=== PATIENT | male | born 1945 | race Caucasian/White ===

== ENCOUNTER → 2019-10-10 14:41 | Outpatient (CLI) | payer MEDICARE, SELFPAY ==
--- NOTE | 2019-10-10 | DI.MRI.S_ITS ---
PROCEDURE: MR KNEE RT WO CON INDICATIONS: PAIN IN RIGHT KNEE TECHNIQUE: Noncontrast sagittal PD fast spin echo and T2 fast spin echo with fat saturation, sagittal 3-D FLASH with fat saturation; coronal T1 spin echo and PD fast spin echo with fat saturation, and axial PD fast spin echo with fat saturation through the knee. COMPARISON: [facility] [place], CR, XR KNEE ARTHRITIC SERIES BI, 06/24/2019, 15:13. FINDINGS: Image quality: Excellent. Menisci: Ill-defined medial meniscal tear involving the body and posterior horn, with near-complete extrusion. There is abnormal signal extending to the undersurface, periphery of the body as well as marked truncation of the free margin of the posterior horn. Lateral meniscus intact. Cruciate ligaments: Anterior cruciate ligament appears intact. Posterior cruciate ligament appears intact. Medial structures: There is medial bowing of the medial collateral ligament, with mild internal signal changes and no complete rupture. There is adjacent soft tissue edema. The appearance could reflect reactive changes to medial compartment pathology, versus low-grade sprain of the MCL. Pes anserinus tendons appear grossly unremarkable. Semimembranosus tendon appears intact. Lateral structures: The lateral collateral ligament demonstrates thickening and intrasubstance signal change in keeping with low grade sprain, statistically chronic, although technically age indeterminate. Biceps femoris tendon appears intact. Popliteus tendon grossly unremarkable. Iliotibial band appears intact. Anterior structures: Distal quadriceps tendinopathy. Medial and lateral patellofemoral ligaments intact. There is mild patellar tendinopathy. Prepatellar and superficial infrapatellar subcutaneous edema/fluid. Bones and cartilage: No focal marrow contusion or discrete low signal fracture line. Within the medial compartment, areas of full-thickness articular cartilage loss overlying the central tibial plateau and femoral condyle. Underlying marked marrow edema and cystic change. Within the lateral compartment, intrasubstance signal change present within the central tibial cartilage. There is diffuse partial-thickness loss of the femoral cartilage without focal defect. Within the patellofemoral compartment, diffuse partial-thickness loss of the patellar and femoral trochlear articular cartilage with surface fraying. Mild marrow cystic change and edema at the medial patellar facet, and sclerosis. Joint space: Moderate joint effusion Tiny Barnett's cyst measuring 1-2 cm in the cephalocaudad dimension. A pair of sub-5 mm bright dark signal abnormalities seen in the patellofemoral joint space, potentially small sequela of prior surgery versus foreign bodies or loose bodies. This finding technically nonspecific and radiographically occult. Recommend clinical correlation to determine significance IMPRESSION: Macerated ill-defined medial meniscal tear involving posterior horn and body. Distal quadriceps and diffuse patellar tendinopathy with adjacent edema and fluid. Degenerative joint disease as above, most pronounced the medial compartment Moderate joint effusion Tiny Barnett's cyst Nonspecific subcentimeter signal changes present within the patellofemoral joint space. Please see comment above and recommend clinical correlation Dictated by: Griffin Garcia M.D. on 10/12/2019 at 8:07 Approved by: Griffin Garcia M.D. on 10/12/2019 at 8:19
== END ==
PROVIDERS: Family Provider Family Medicine; PCP Family Medicine; Referring Provider Orthopaedic Surgery; Visit Provider Orthopaedic Surgery
DX: M25.561 Pain in right knee (principal); S83.241A Other tear of medial meniscus, current injury, right knee, initial encounter; M25.461 Effusion, right knee
CPT/HCPCS: 73721

== ENCOUNTER → 2019-10-28 12:58 | Outpatient (CLI) | payer MEDICARE, SELFPAY ==
--- NOTE | 2019-10-28 | DI.MRI.S_ITS ---
PROCEDURE: MR KNEE LT WO CON INDICATIONS: Unilateral primary osteoarthritis, left knee TECHNIQUE: Noncontrast sagittal PD fast spin echo and T2 fast spin echo with fat saturation, sagittal 3-D FLASH with fat saturation; coronal T1 spin echo and PD fast spin echo with fat saturation, and axial PD fast spin echo with fat saturation through the knee. COMPARISON: [facility] [place], CR, XR KNEE ARTHRITIC SERIES BI, 06/24/2019, 15:13. FINDINGS: Image quality: Diagnostic. Bones and joint: There is no acute fracture or dislocation. No suspicious osseous lesions are evident. There is a small knee joint effusion with an associated complex Barnett's cyst. There is lobulated fluid evident along the posterior medial aspect of the proximal tibia along the pes anserinus region, which appears to be emanating from the Barnett's cyst. Heterogeneity of the hyaline articular cartilage is noted throughout the knee. There are chronic appearing moderate to large full thickness defects of the hyaline articular cartilage within the medial tibiofemoral compartment with areas of degenerative/reactive marrow edema involving the medial femoral condyle and the medial tibial plateau. There may also be small defects of the head articular cartilage within the patellofemoral compartment. Cruciate ligaments: The anterior cruciate ligament is thickened and demonstrates diffuse increased signal. No full-thickness tear is evident. The posterior cruciate ligament is intact and otherwise unremarkable. Menisci: There is a very small radial tear identified along the free edge of the body of the lateral meniscus. Degenerative/grade 2 signal is evident throughout the lateral meniscus. There also is degenerative signal evident involving the medial meniscus. There is moderate grade partial-thickness tear involving the posterior root of the medial meniscus. Fraying along the free edge of the body of the medial meniscus is evident. Medial structures: There is increased signal and heterogeneity involving the medial collateral ligament, probably related to previous partial thickness tear. No complete tear is identified. The semimembranosus tendon insertion is mildly edematous and thickened. The imaged portions of the pes anserinus tendons are unremarkable. No significant fluid is contained within the pes anserinus bursa. There is a small medial patellar plica. Lateral structures: The popliteal tendon is thickened and edematous. The lateral collateral ligament proper (fibular collateral ligament) and the proximal tibiofibular ligaments are intact. The distal aspect of the biceps femoris tendon and the iliotibial band are intact. Anterior structures: The quadriceps and patellar tendons are intact. Enthesophytes at the distal quadriceps insertion and the distal patellar insertion is evident. There is mild increased signal involving these tendons at these locations. There is no significant edema in the infrapatellar fat pad. IMPRESSION: 1. Moderate degenerative changes of the knee are most pronounced within the medial compartment. 2. Degenerative changes of both menisci without a large tear evident, as described. 3. Mild distal quadriceps and patellar tendinopathy. 4. Probable old injury of the medial collateral ligament. 5. Distal semimembranosus tendinopathy. 6. Mild proximal popliteal tendinopathy. 7. Medial patellar plica. 8. Small knee joint effusion with a complex Barnett's cyst. Dictated by: Harrison Jean M.D. on 10/28/2019 at 15:35 Approved by: Harrison Jean M.D. on 10/28/2019 at 15:52
== END ==
PROVIDERS: Family Provider Family Medicine; PCP Family Medicine; Referring Provider Orthopaedic Surgery; Visit Provider Orthopaedic Surgery
DX: M17.12 Unilateral primary osteoarthritis, left knee (principal); M71.22 Synovial cyst of popliteal space [Baker], left knee; M25.462 Effusion, left knee; S83.282A Other tear of lateral meniscus, current injury, left knee, initial encounter; S83.242A Other tear of medial meniscus, current injury, left knee, initial encounter
CPT/HCPCS: 73721

== ENCOUNTER → 2020-02-15 09:16 | Outpatient (CLI) | payer MEDICARE, SELFPAY ==
[2020-02-16 06:53] LABS: COVID19 Sendout Not Detected (Not Detect)
== END ==
PROVIDERS: Family Provider Family Medicine; PCP Family Medicine; Visit Provider Physician Assistant
DX: Z01.812 Encounter for preprocedural laboratory examination (principal)
CPT/HCPCS: 87635

== ENCOUNTER 2020-02-18 09:35 | Day surgery (SDC) | payer MEDICARE, SELFPAY ==
[2020-02-16 10:47] VITALS: BMI 36.6
[2020-02-18] VITALS (18 sets, daily range): BP systolic 107–149; BP diastolic 59–79; PULSE 49–70; RESP 10–20; TEMP 35.9–37.1; O2SAT 92–100; BMI 36.6; BMI 37.5
--- NOTE | 2020-02-18 | DI.RAD.S_ITS ---
PROCEDURE: XR KNEE LT 1TO2V INDICATIONS: TOTAL LEFT KNEE TECHNIQUE: 2 view(s) of the knee acquired. COMPARISON: None. FINDINGS: Bones: Patient is status post knee joint arthroplasty. Hardware components are in expected positions. Visualized bony structures are intact. Soft tissues: Overlying postoperative changes are noted. IMPRESSION: Post left total knee arthroplasty changes with anatomic left knee alignment. Dictated by: Colt Storey M.D. on 02/18/2020 at 14:37 Approved by: Colt Storey M.D. on 02/18/2020 at 14:38
[2020-02-18] MEDS: CELECOXIB 200 MG CAPSULE PO (09:52)
[2020-02-18] MEDS: LACTATED RINGERS 1,000 ML 42 ML IV ×3 (09:52→15:31)
[2020-02-18] MEDS: ACETAMINOPHEN 325 MG TABLET 975 MG PO (09:52)
[2020-02-18] MEDS: CEFAZOLIN 2 GM/100 ML FROZ.PIGGY IV ×2 (10:33→18:35)
[2020-02-18] MEDS: VANCOMYCIN 1,000 MG/200 ML PIGGYBACK 200 MG IV (10:34)
--- NOTE | 2020-02-18 12:02 | P.OP_ITS ---
Operative Date/Time/Diagnoses Date of procedure: 02/18/20 Time of procedure: 12:20 Pre-op diagnosis: Left knee osteoarthritis Post-op diagnosis: same Procedure & Clinicians Procedure: Left total knee arthroplasty Same procedure as scheduled: Yes Indications: The patient has had progressively worsening left knee pain with radiographic changes consistent with arthritis. Non-operative management has failed and the patient has requested total knee replacement. The risks, benefits and alternatives to surgery were discussed with the patient prior to proceeding. Risks discussed included, but were not limited to, failure to relieve pain, stiffness, infection, nerve damage, deep venous thrombosis, pulmonary embolism, stroke, coma, heart attack, permanent paralysis and , as well as the potential need for eventual revision of the prosthetic. Surgeon: Fara Dhillon Geographic Information Systems Director: Bryan Maher Anesthesia Type: General and Spinal Operative Notes Findings: Severe left knee osteoarthritis, good stability and balance Closure Type: primary Specimen(s): none sent Prosthetic devices, grafts, tissues, transplants, or devices: [facility] 2 size 7 femur, size 6 tibia, +9 poly, 38m patella Applied: drain(s) Estimated Blood Loss (mL): 250 Blood products transfused: none Tourniquet time (min): 96 Procedure in detail: The patient was seen in the pre-operative area, where the patient identified the left knee as the operative site and this was marked with my initials. The patient received pre-operative antibiotics, and was taken to the operating room and placed on the operative table in the supine position. After satisfactory anesthesia, a riveting machine operator out was performed. The left leg was encircled with a tourniquet about the proximal thigh, and the leg was prepared from the toes to the tourniquet with ChloroPrep in the usual fashion and draped through sterile drapes. The leg was elevated and exsanguinated with Eschmark bandage and the tourniquet inflated to [250] mmHg pressure. The knee was approached through an approximately 18 cm incision centered over the patella and carried into the knee through a medial parapatellar arthrotomy. A portion of the medial and lateral meniscus was resected. Soft tissue was carefully mobilized around the patella the patella was measured with a caliper. Bone was resected from the patella. Had an extremely tight patellofemoral joint and required fairly extensive mobilization of the soft tissues in order to do the knee arthroplasty. The patella was finished after the distal femoral and tibial cut had been performed. The patellar height was reconstituted with up an appropriate sized patellar component. A cover was then placed on the patella. A small amount of additional medial and lateral meniscus was resected. The visionare guide fit well to the distal femur. It looked like an appropriate distal femoral cut and the cut was made without difficulty. The rotation was assessed and the appropriate size femoral guide was placed on the distal femur and finishing cuts were made. There is no evidence of notching. The anterior, posterior and chamfer cuts were then made. The posterior osteophytes and soft tissues were then removed. The posterior capsule was injected with part of a mixture of 60 ml 0.25% Marcaine mixed with 20 ml Exparel for post operative pain control. The remainder of this mixture was injected into the capsule and subcutaneous tissues during cement curing. The tibia was prepared and the visionaire guide fit adequately to the distal tibia after fairly extensively mobilizing the soft tissues around the tibia. The rotation was assessed. The patient was placed in extension residual medial and lateral meniscus as well as any residual bone was carefully resected. 2 mm additional tibia was resected. The knee came to full extension with a 9 mm extension block. Hemostasis was achieved especially posteriorly. Additional local was injected into the posterior capsule. The extension gap was assessed and additional releases for gap balancing were performed as necessary. The femoral component was trial was placed and the notch was finished. Trial tibial and femoral components were then placed and the knee placed through a range of motion. Range of motion was [0-130], with good stability throughout the range. The tourniquet became deflated and was acting as a venous tourniquet. It was formally deflated at that point. He had a fairly tight knee. I did have that non constrained poly available for the initial reduction. The trials were then removed, and the tibia was finished. The bone was prepared with pulsatile lavage, and dried with a sponge. Tourniquet was briefly reinflated during cement setting. Cement was applied and the final prosthetics placed. Excess cement was removed during and after cement curing. A brief Betadine soak was performed. The knee was copiously irrigated and the tourniquet deflated. Hemostasis was obtained with the Bovie cautery. A drain was placed and brought out superolaterally. The capsule was closed with interrupted # 1 Vicryl suture. The subcutaneous layer was closed with barbed sutures, and the skin with a running 3-0 V-Lock suture and Surgical glue. An Aquacel Ag dressing was applied and the patient was taken to recovery having tolerated the procedure well. Complications: none Post-operative Condition: stable Disposition: Acute Care Plan for aftercare: The patient will be maintained on a standard total knee replacement protocol with weight bearing as tolerated. The patient will receive aspirin and sequential compression devices for DVT prophylaxis. The patient will be discharged home when safe for the home environment.
--- NOTE | 2020-02-18 12:02 | PM.PREOP ---
Pre-operative Note COVID-19 COVID-19 status: Negative Interval Note History & Physical reviewed/Exam performed by Physician: Yes Changes to H&P: No
[2020-02-18] MEDS: BUPIVACAINE LIPOSOME 266 MG/20 ML VIAL INJ ×2 (12:32→12:33)
[2020-02-18] MEDS: TRANEXAMIC ACID 1,000 MG VIAL 1000 MG INJ ×2 (12:32→14:26)
[2020-02-18] MEDS: BUPIVACAINE 0.25% W/ EPI 30 ML VIAL 60 ML INJ (12:33)
[2020-02-18] MEDS: SODIUM CHLORIDE IRRIG SOLUTION 250 ML, POVIDONE-IODINE SPONGE STICKS 1 APPLIC IRR (12:34)
--- NOTE | 2020-02-18 12:38 | SUR.OPER ---
Supine on padded OR bed. Pillow under head, arms secured on padded armboards <90 degree abduction. Safety belt across torso. Non-operative leg secured with tape over blanket over lower leg. Operative leg secured in DeMayo/Korey positioner. Foam padded brace at thigh of operative leg.
[2020-02-18] MEDS: fentaNYL 100 MCG/2 ML INJ IV ×2 (15:30→15:42)
--- NOTE | 2020-02-18 15:43 | SUR.PHASEI ---
Patient able to move all extremities. Assisted patient onto left side for comfort. VSS.
--- NOTE | 2020-02-18 15:58 | SUR.PHASEI ---
Positioned patient up higher in the bed for comfort and placed warm blanket to patient.
[2020-02-18] MEDS: LACTATED RINGERS 1,000 ML 100 ML IV (17:01)
[2020-02-18] MEDS: ACETAMINOPHEN 325 MG TABLET 650 MG PO (21:45)
[2020-02-18] MEDS: DRONEDARONE 400 MG TABLET PO (21:45)
[2020-02-18] MEDS: DOCUSATE 100 MG CAPSULE PO (21:45)
[2020-02-18] MEDS: ASPIRIN EC 81 MG TABLET PO (21:45)
[2020-02-19] MEDS: CEFAZOLIN 2 GM/100 ML FROZ.PIGGY IV (02:23)
--- NOTE | 2020-02-19 02:30 | PC.NURSE ---
2348 patient seen and assessed. Is alert and oriented. Breath sounds CTAP. Has sleep apnea and normally uses CPAP so is currently on oxygen at 2L/min per NC with sat of 96%. HRR. Denies nausea. BT hypoactive; denies flatus as yet. States he voided earlier and had some difficulty with starting urination but denies dysuria. Is able to move himself in bed. When up reportedly is using walker and SBA; gait not assessed at this time. MEDHAT dressing covered with bianca wrap to left knee is CDI and functioning. Hemovac is intact and compressed. Allevyn dressing to left forearm is CDI. Denies any residual tingling/numbness at this time and CMS is intact. Able to lift left leg off bed doing straight leg raises. Denies pain; does have ice packs to knee. Wearing bilateral calf SCD's. Fall risk score is moderate and bed alarm is activated. rooming in.
[2020-02-19] MEDS: LACTATED RINGERS 1,000 ML 100 ML IV (03:53)
[2020-02-19 05:23] VITALS: BP 119/68; PULSE 54; RESP 16; TEMP 36.3; O2SAT 100
[2020-02-19] MEDS: LEVOTHYROXINE 125 MCG TABLET PO (05:59)
[2020-02-19] MEDS: OXYCODONE IR 5 MG TABLET PO ×3 (06:00→12:06)
[2020-02-19 06:43] LABS: Hematocrit 37.5 % (41-53); Hemoglobin 12.9 g/dL (13.5-17.5)
[2020-02-19 07:35] VITALS: BP 135/77; PULSE 55; RESP 16; TEMP 36.6; O2SAT 99
--- NOTE | 2020-02-19 07:55 | PM.DS.1 ---
History of Present Illness History of Present Illness Date Patient Seen: 02/19/20 Chief complaint: LT TKA *OPB* Narrative: Please see HPI previously recorded in the chart. Discharge Providers Provider Discharge Date: 02/19/20 Primary care physician: Guevara Gonzalez MD Consults: 02/16/20 07:56 Consult to Anesthesiology Routine Comment: Consulting Provider: Anesthesiologist Reason for consultation: Regional block for post operative pain control 02/16/20 10:48 Consult to Anesthesiology Routine Comment: Consulting Provider: Anesthesiologist Reason for consultation: Surgeon requested re: Sleep apnea 02/18/20 10:26 Consult to Respiratory Therapy Evaluate & Treat Comment: Physician Instructions: Evaluate and treat 02/18/20 16:25 Consult to Discharge Planning Routine Comment: Consult to Physical Therapy Evaluate & Treat Comment: Physician Instructions: postop TKA protocol Consult to Respiratory Therapy Evaluate & Treat Comment: Physician Instructions: Evaluate and treat Discharge provider: Ewa King PA-C Summary Hospital Course Discharge Diagnosis: s/p left total knee arthroplasty Hospital Course: The patient has had progressively worsening left knee pain with radiographic changes consistent with arthritis. Non-operative management has failed and the patient has requested total knee replacement. The risks, benefits and alternatives to surgery were discussed with the patient prior to proceeding. Risks discussed included, but were not limited to, failure to relieve pain, stiffness, infection, nerve damage, deep venous thrombosis, pulmonary embolism, stroke, coma, heart attack, permanent paralysis and , as well as the potential need for eventual revision of the prosthetic. Status at Discharge Cognitive/behavioral status at discharge: oriented Functional status at discharge: uses cane/walker Overall status at discharge: patient is progressing back to baseline Exam Vital Signs (past 8 hours): - 02/19/20 05:23 Temperature 97.4 F L Pulse Rate 54 L Respiratory Rate 16 Blood Pressure 119/68 Pulse Oximetry 100 Oxygen Delivery Method Nasal Cannula Oxygen Flow Rate 2 Narrative Exam Narrative: 74 year old male resting in bed. Alert and oriented in no acute distress. PERCY wrap and MEDHAT dressing in place, on and functioning. Patient able to perform a straight leg raise. Calves are soft and nontender. Objective Labs Result Diagrams: 02/19/20 06:05 Labs: Laboratory Results - last 24 hr 02/19/20 06:05 Hgb 12.9 L Hct 37.5 L Discharge Assessment & Plan Assessment and Plan Plan of Treatment: Patient is POD#1 s/p left TKA with Dr. Dhillon. Pain has been well controlled with Oxycodone. He has been able to mobilize about the room and with PT. He had initial difficulty voiding due to spinal block which has resolved. He will resume his apixaban for DVT prophylaxis. He has good support system and is available as caregiver. He is stable for discharge to home later today. Discharge Plan Discharge Plan Patient Disposition: Home Provider Discharge Comment: Discharge to home when cleared by therapy. Discharge orders & Medications Discharge Orders: Discharge (Order); Ordered 02/19/20 Ordered By: Ewa King Prescriptions: New acetaminophen 325 mg Tablet 650 mg PO TID Qty: 40 RF: 0 docusate sodium [DOK] 100 mg Capsule 100 mg PO BID Qty: 40 RF: 0 oxycodone 5 mg Tablet 5 mg PO Q3HR PRN (Reason: Pain, Moderate (4-6)) Qty: 60 RF: 0 Continued levothyroxine 125 mcg tablet 125 mcg PO DAILY 90 Days Qty: 90 RF: 0 magnesium oxide 200 mg magnesium tablet 200 mg PO DAILY RF: 0 ascorbic acid (vitamin C) 1,000 mg tablet 1 gram PO DAILY RF: 0 cholecalciferol (vitamin D3) [Vitamin D3] 25 mcg (1,000 unit) tablet 1,000 unit PO DAILY RF: 0 venlafaxine 150 mg capsule,extended release 24hr 150 mg PO QAM Qty: 90 RF: 1 diltiazem HCl 30 mg tablet 30 mg PO Q4H PRN (Reason: a-fib) RF: 0 furosemide 20 mg tablet 20 mg PO Q OTHER DAY RF: 0 oxybutynin chloride [Ditropan XL] 10 MG tablet extended release 24hr 10 mg PO QDAY Qty: 0 RF: 0 chlorthalidone 25 MG tablet 25 mg PO QDAY Qty: 0 RF: 0 atomoxetine 40 mg capsule 40 mg PO QAM RF: 0 Eliquis 5 mg tablet 5 mg PO BID RF: 0 Multaq 400 mg tablet 400 mg PO BID RF: 0 Follow up/Referrals: Guevara Gonzalez MD [Primary Care Provider] - Fara Dhillon MD [Physician] - As previously scheduled (PLEASE CALL DR. DHILLON'S OFFICE TO CONFIRM/SCHEDULE YOUR FOLLOW UP APPOINTMENT.) Diet/Activity/Treatments Diet: Diet as Tolerated Activity: Ambulate multiple times a day. Cold/Heat Therapy: Place ice on knee multiple times a day. Skin/Wound/Dressing Care Report to your healthcare provider any signs of infection, such as:: chills, fever Dressing: Leave dressing on. Okay to shower Visit Report/Discharge Packet Instructions: DI for Knee Replacement, How to Prevent Falls, DI for Prescription Opioid Use Stand Alone Forms: Surgery Discharge Discharge Data Primary Care Provider: Guevara Gonzalez Attending Provider: Fara Dhillon Discharges patient from system. Discharge Date/Time: 02/19/20 13:19
[2020-02-19] MEDS: MAGNESIUM OXIDE 400 MG TABLET 200 MG PO (09:09)
[2020-02-19] MEDS: DOCUSATE 100 MG CAPSULE PO (09:09)
[2020-02-19] MEDS: DRONEDARONE 400 MG TABLET PO (09:13)
[2020-02-19] MEDS: ACETAMINOPHEN 325 MG TABLET 650 MG PO (09:15)
[2020-02-19] MEDS: ASPIRIN EC 81 MG TABLET PO (09:16)
[2020-02-19] MEDS: ASCORBIC ACID 500 MG TABLET 1000 MG PO (09:16)
[2020-02-19] MEDS: CHOLECALCIFEROL (VITAMIN D3) 1,000 UNIT TABLET 1000 UNIT PO (09:16)
[2020-02-19] MEDS: CHLORTHALIDONE 25 MG TABLET PO (09:16)
[2020-02-19] MEDS: OXYBUTYNIN 5 MG ER TAB 10 MG PO (09:17)
[2020-02-19] MEDS: VENLAFAXINE ER 75 MG CAP 150 MG PO (09:26)
[2020-02-19] MEDS: FUROSEMIDE 20 MG TABLET PO (09:27)
--- NOTE | 2020-02-19 11:02 | PC.NURSE ---
Addendum entered by Deniz Lantigua R.N. 02/19/20 13:17: HV DC'D INTACT AFTER 30CC'S EMPTIED. PRESSURE TO HEMOSTASIS, 2X2 FOLEDED IN 1/4THS AND TEGADERM PLACED. IV DC'D INTACT. PATIENT AND SPOUSE CONFIRM UNDERSTANDING OF ALL DC HOME PAPERWORK AND INSTRUCTIONS. TAKEN TO VEHICLE BY WC BY FORESTRY AID WITH SPOUSE AND ALL BELONGINGS INCLUDING SCRIPTS. Original Note: PATIENT REPORTS ADEQUATE PAIN CONTROL. CLEARED FOR DC HOME BY PHYSICAL THERAPY. SL'D AT THIS TIME. SPOUSE PRESENT FOR CAREGIVER TRAINING.
--- NOTE | 2020-02-19 12:47 | PT.IIE ---
Current Diagnoses Unilateral primary osteoarthritis, right knee (02/18/20) Unilateral primary osteoarthritis, left knee (02/18/20) Surgery Performed Operation Date: 02/18/20 11:30 Actual Procedures p Total Knee Arthroplasty(Left) - Fara Dhillon MD Surgical History (Last Updated 02/15/20 @ 14:37 by Edita Ocasio, RN) History of carpal tunnel release of both wrists (Acute 2004) History of colonoscopy (Acute) History of hydrocelectomy (Acute 1996) History of surgery (Acute 10/13/19) History of surgery (Acute 2004) History of tonsillectomy and adenoidectomy (Acute) Hx of bilateral cataract extraction (Acute 2012) Hx of eye surgery (Acute 2011) Hx of hand surgery (Acute 2001) Hx of hand surgery (Acute) Medical History (Last Updated 02/15/20 @ 14:38 by Edita Ocasio RN) ADHD (Acute) Allergic rhinitis (Chronic) Anxiety (Acute) Arthritis (Chronic) Asthma (Acute) Atrial fibrillation (Acute) Depression (Chronic) Gout (Acute) Heart murmur (Acute) Hepatitis (Acute 1957) History of cardioversion (Acute) Hypertension (Chronic) Hypothyroid (Acute) Hypothyroidism (acquired) (Chronic) Jaundice (Acute 1957) Kidney stones (Acute) Mononucleosis (Acute 1957) Obesity (BMI 30-39.9) (Chronic) Obesity (BMI 30-39.9) (Chronic) Obstructive sleep apnea of adult (Chronic) Osteoarthritis (Acute) Reactive airway disease (Acute) Recurrent major depression in partial remission (Inactive) Rheumatic fever (Acute) Sleep apnea (Acute) Snoring (Inactive) Walking pneumonia (Acute) Yellow fever (Acute 1957) Physical Therapy Inpatient Evaluation/Re-Eval M1 PT/OT-IP Prior Functional Status Start: 02/19/20 08:27 Freq: NEEDED Status: Active Protocol: Document 02/19/20 11:16 DE (Rec: 02/19/20 11:27 DE [id number]) Medical Review Prior Functional Status Medical History Reviewed Yes Diet/Fluid Consistency Regular Communication WNL. No deficits noted. Able to make needs known. Mobility and Gait IND at baseline without AD. Uses a walking stick only when hiking. Activities of Daily Living and IADL's IND for all ADLs at baseline. Prior Functional Level (Other details) Pt was very active at baseline . Pt was able to walk outside in the neighborhood often. Social History Household Members spouse Living Arrangements House Number of Floors (Floors) One Floor Number of Stairs To Enter/Railing? 2 ROGER with a post on the L side that he can hold onto while going up. Stairs inside too but will stay on first floor, which has everything he needs. Home Environment Standard Height Toilet,Walk in Shower,Built-In Shower Seat Home Equipment Front Wheel Walker,Straight Cane,Hand Held Shower,Artistic Associate, Grab Bars In Shower Employment Status Retired Additional Social History Comment Pt lives with his who is IND and able to provide assist . Pt's son-in-law will also be there when he goes home to provide extra support getting into the house. M2 PT-IP Current Condition Start: 02/19/20 08:27 Freq: NEEDED Status: Active Protocol: Document 02/19/20 11:48 HH (Rec: 02/19/20 12:47 HH [id number]) Physical Therapy Current Condition Current Condition Evaluation Date 02/19/20 Treatment Diagnosis L TKA, difficulty in walking Onset Date 02/18/20 Weight Bearing Status Weight Bearing Status Weight Bear as Tolerated M3 PT-IP Subjective Start: 02/19/20 08:27 Freq: NEEDED Status: Active Protocol: Document 02/19/20 11:48 HH (Rec: 02/19/20 12:47 HH [id number]) Subjective Physical Therapy Visit Type Type Initial Evaluation Visit Start Time 10:25 Visit Stop Time 11:10 Total Visit Minutes 45 Notes co-tx with SPT Bryan Coronel. 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 Therapy Pain Assessment Pain When Pain Assessed During Mobility Pain Present Pain Present Pain Reported Location Left Knee Intensity 5 Scale Used Numeric (0 - 10) Description Aching,With Movement Pain Management Techniques Timing of Activity with Medications M4 PT-IP Mobility and Gait Start: 02/19/20 08:27 Freq: NEEDED Status: Active Protocol: Document 02/19/20 11:48 DE (Rec: 02/19/20 12:43 DE [id number]) PT-Bed Mobility Assessment Rolling Level of Assist Standby Assistance Supine to Sit Supine to Sit Standby Assistance,Head of Bed Elevated,Bedrails Scooting Scooting to Edge of Bed Standby Assistance PT-Transfer Assessment Sit to and From Stand Sit to and from Stand Contact Guard Assistance,Use of Upper Extremities Equipment Transfer Assistive Device Gait Belt,Front Wheeled Walker Orthotic/Prosthetic Devices or Brace: No Transfers Transfer Destination Bed,Chair,Wheelchair Transfer Technique Stand Step Pivot Transfer Ability Level of Assist Contact Guard Assistance,Use of Upper Extremities Comments Mobility Comments Pt was lying supine in bed with HOB elevated ~45 deg as PT and SPT arrived. Pt's was at bedside. Pt performed supine to long sit and pivoted himself L EOB SBA with use of BUE. Pt was moving very well and did not need any support. He then completed a minute of seated heel slide >90 degrees with towel underneath. Pt performed sit to stand with CGA and FWW. Pt had all WB through his RLE during sit to stand (stagger stance). Pt amb ~90 ft with CGA and FWW. Pt demonstrated step-through but L antalgic gait pattern with decreased stride length, externally rotated BLE, flexed trunk. Pt performed stair climbing up and down 3 steps x3 with min 1P MOLECULAR PHYSICIST and use of L handrail going up. Pt was instructed to lead with R to ascend and lead with L to descend. Verbal instructions and visual demonstration were provided for CG training on the stairs. Pt's was instructed to place one hand on gait belt while the other hand support pt's hand. Pt's was able to return demonstration of understanding . After gait training, pt was wheeled back to the room to save energy for d/c later today. BP in chair after mobilization was 155/72. Pt was left sitting in the chair with his in the room. Call light was placed within reach. Gait Assessment Gait Gait Assistance Required: Contact Guard Assist,1 Person Assist Distance (Feet) 90 Able to Maintain Weight Bearing Status Yes During Gait Assistive Devices Assistive Device Gait Belt,Front Wheeled Walker Orthotic/Prosthetic Devices or Brace: No Gait Deviations General Gait Pattern Antalgic,Decreased Stride Length,Flexed Trunk,Wide Based Gait Factors Limiting Gait Function Factors Limiting Gait Function Decreased Activity Tolerance, Decreased Strength,Limited Range of Motion,Pain,Poor Balance Comments Gait Comments See mobility comments. Stair Climbing Assessment Evaluation Level of Assist On Stairs Minimal Assistance,1 Person Assistance Devices Stair Climbing Assistive Devices Left Railing Technique/Endurance Stair Climbing Direction Ascend and Descend Stair Climbing Technique Step to Step Number of Steps Climbed 3 Query Text: Stair Climbing Set # Repetitions (reps) 3 Comments Stair Climbing Comments See mobility comments. PT-Balance Assessment Sitting Balance and Reactions Static Sitting Balance Ability Normal Dynamic Sitting Balance Ability Normal Standing Balance and Reactions Static Standing Balance Ability Normal Dynamic Standing Balance Ability Good Device Used FWW M5 PT-IP Objective Assessments Start: 02/19/20 08:27 Freq: NEEDED Status: Active Protocol: Document 02/19/20 11:48 HH (Rec: 02/19/20 12:47 [id number]) Orientation Orientation/Cognition Level of Alertness Alert Orientation Name,Age,Birthday,Month,Date, Year,Day of Week,Place, Situation Language Function Ability No Deficits Noted Safety Awareness Understands Safety Issues Memory Description No Deficits Noted Gross Range of Motion Upper Extremity ROM Assessment Within Functional Limits Lower Extremity ROM Assessment Left Impaired Impairments L knee AROM approx 8 - 105 Strength Upper Extremity Strength Assessment Within Functional Limits Lower Extremity Strength Assessment Left Impaired Hip 4/5 Knee 3/5 Coordination Assessment Gross Coordination Gross Coordination WNL Sensation Assessment Sensation Gross Sensation WNL Muscle Tone Muscle Tone WNL Yes M6 PT-IP Treatment Start: 02/19/20 08:27 Freq: NEEDED Status: Active Protocol: Document 02/19/20 11:48 HH (Rec: 02/19/20 12:47 [id number]) Physical Therapy Treatment Exercises Exercises Ankle Pumps,Gluteal Sets,Quad Sets,Heel Slides Education Education Provided Precautions,Weight Bearing Status,Post-Op Packet,Safety M7 PT-IP Assessment and Plan Start: 02/19/20 08:27 Freq: NEEDED Status: Active Protocol: Document 02/19/20 11:48 DE (Rec: 02/19/20 12:43 DE [id number]) PT Summary Assessment and Plan Potential Rehabilitation Potential Excellent Status of Condition at Evaluation Stable Summary Impairments Pain,ROM,Strength,Balance,Bed Mobility,Transfers,Gait, Activity Tolerance Progress Towards Goals Safe For Discharge Assessment Summary This is a low complexity evaluation for 74 yo male, Kwabena, s/p L TKA POD1. PLOF= IND at baseline for all activies without AD except for when hiking. CLOF= SBA with use of BUE for bed mobility. CGA with FWW for sit to stand and amb. Min 1P MOLECULAR PHYSICIST with use of L handrail for stair climbing. Upon assessment, pt is safe for d/c home with FWW and support from family. However, pt stated he lives far from the outpatient clinic and he is interested in home health. Relayed message to ERNA Akins regarding his concerns but he will benefit from home health or outpatient therapy to improve strength and mobility in the hip as well as balance Frequency of Treatment Frequency Of Treatment Discharge Recommendations To Nursing Amount of Assist Needed 1 Person Assist Discharge Recommendations PT Discharge Recommendations Home with Assistance,Home Health,Outpatient PT Transportation Needs at Discharge Private Vehicle
--- NOTE | 2020-02-19 15:44 | CM.IDA ---
Initial DCP Assessment Note Pt is a 74 yo male, resident of [place], now POD#1 from Lt TKA surgery w/ Dr Dhillon PCP: Harsh Gonzalez Payer: Julio Richards Reviewed chart, pt discussed in multidisciplinary rounds this morning. Therapy has cleared pt for return home w/family to assist and pt has planned for home, DC order from Ortho has already been initiated this morning. Met w/patient and spouse, both eager to return home, patient requests , [facility] Placed call to Gamaliel at [facility] today and faxed order, signed F2F, H+P, therapy notes and draft DC Summary, signed not available yet P[facility]
== END 2020-02-19 13:19 | disposition home or self-care (01) ==
LOC: OR 09:46 → AC 13:28
PROVIDERS: Family Provider Family Medicine; PCP Family Medicine; Referring Provider Orthopaedic Surgery; Visit Provider Orthopaedic Surgery
PROC: 0SRD0JZ Replacement of Left Knee Joint with Synthetic Substitute, Open Approach (ICD-10-PCS; CPT 27447; principal; 2020-02-18 11:30)
DX: M17.12 Unilateral primary osteoarthritis, left knee (principal); M17.11 Unilateral primary osteoarthritis, right knee; I48.91 Unspecified atrial fibrillation; I10 Essential (primary) hypertension; E03.9 Hypothyroidism, unspecified; F41.9 Anxiety disorder, unspecified; F32.9 Major depressive disorder, single episode, unspecified; G47.33 Obstructive sleep apnea (adult) (pediatric); E66.9 Obesity, unspecified
CPT/HCPCS: 27447; 36415; 73560; 85014; 85018; 94762; 97161; 97530; C1776; C9290; J0690; J1100; J2250; J2274; J2405; J3010

== ENCOUNTER → 2020-06-22 15:46 | Outpatient (CLI) | payer MEDICARE, SELFPAY ==
[2020-05-20 14:19] VITALS: BMI 37.5
--- NOTE | 2020-06-22 15:50 | DI.MRI.S_ITS ---
PROCEDURE: MR KNEE RT WO CON INDICATIONS: Unilateral primary osteoarthritis, right knee TECHNIQUE: Noncontrast sagittal PD fast spin echo and T2 fast spin echo with fat saturation, sagittal 3-D FLASH with fat saturation; coronal T1 spin echo and PD fast spin echo with fat saturation, and axial PD fast spin echo with fat saturation through the knee. COMPARISON: , MR, MR KNEE RT WO CON, 10/10/2019, 14:49. [facility] [place], CR, XR KNEE ARTHRITIC SERIES BI, 06/24/2019, 15:13. FINDINGS: Image quality: Excellent. Menisci: Medial extrusion of the medial meniscus. Linear and amorphous high signal intensity within the anterior horn, body, and posterior horn medial meniscus, demonstrating superior and inferior articular surface extension, indicating complex tearing, as before. Linear horizontally oriented high signal intensity traverses the posterior horn lateral meniscus, demonstrating inferior articular surface extension, indicating horizontal tearing. Cruciate ligaments: The anterior and posterior cruciate ligaments appear intact. Medial structures: The medial collateral ligament appears intact. Mild T2 signal elevation surrounds the medial collateral ligament. Visualized portions of the pes anserinus tendons appear normal. No abnormal bursal fluid. Lateral structures: The lateral collateral ligament demonstrates mild T2 signal elevation at the femoral origin. The long and short heads of the biceps femoris tendon appear intact. The popliteus tendon appears normal. Iliotibial band appears normal. Anterior structures: The quadriceps and patellar tendons appear intact. Mild T2 signal elevation within the quadriceps tendon at the patellar insertion site. Mild T2 signal elevation within the patellar tendon at the patellar insertion site. Patellar alignment is normal. No femoral trochlear dysplasia or ventral trochlear prominence. No edema in the infrapatellar fat pad. Bones and cartilage: No bone marrow contusions or fractures. There is mild subchondral degenerative marrow edema within the weight-bearing aspects of the medial femoral condyle and medial tibial plateau, as before. There is moderate tricompartmental periarticular osteophyte formation. There is severe articular cartilage loss overlying the weight-bearing aspects of the medial femoral condyle and medial tibial plateau. Mild articular cartilage loss diffusely overlies the weight-bearing aspects of the lateral femoral condyle and lateral tibial plateau. Mild articular cartilage loss overlies the medial and lateral patellar facets with superimposed focal high-grade region of articular cartilage loss overlying the medial patellar facet. Joint space: There is a small knee joint effusion with several small intra-articular loose bodies, as well as a trace Barnett's cyst. Normal appearing synovial plicae are incidentally noted. IMPRESSION: 1. Tricompartmental osteoarthritis with associated articular cartilage loss. 2. Medial and lateral meniscal tearing. 3. Patellar tendinitis and quadriceps tendinopathy. 4. Knee joint effusion, intra-articular loose bodies, and trace Barnett's cyst. 5. Low-grade partial thickness lateral collateral ligament tear. 6. MCL strain. Dictated by: Liban Astudillo M.D. on 06/23/2020 at 8:33 Approved by: Liban Astudillo M.D. on 06/23/2020 at 8:38
== END ==
PROVIDERS: Family Provider Family Medicine; PCP Family Medicine; Referring Provider Orthopaedic Surgery; Visit Provider Orthopaedic Surgery
DX: M17.11 Unilateral primary osteoarthritis, right knee (principal); S83.231A Complex tear of medial meniscus, current injury, right knee, initial encounter; S83.281A Other tear of lateral meniscus, current injury, right knee, initial encounter; M25.461 Effusion, right knee; S83.411A Sprain of medial collateral ligament of right knee, initial encounter; S83.421A Sprain of lateral collateral ligament of right knee, initial encounter
CPT/HCPCS: 73721

== ENCOUNTER → 2020-09-19 13:11 | Outpatient (CLI) | payer MEDICARE, SELFPAY ==
[2020-05-20 14:19] VITALS: BMI 37.5
[2020-09-19 14:17] LABS: COVID19 -Nasal RAPID Negative (Negative)
== END ==
PROVIDERS: Family Provider Family Medicine; PCP Family Medicine; Visit Provider Student in an Organized Health Care Education/Training Program
DX: Z01.812 Encounter for preprocedural laboratory examination (principal); Z20.822 Contact with and (suspected) exposure to COVID-19
CPT/HCPCS: 87635; C9803

== ENCOUNTER 2020-09-20 10:34 | Observation (INO) | payer MEDICARE, SELFPAY ==
[2020-05-20 14:19] VITALS: BMI 37.5
[2020-08-10 08:42] VITALS: BMI 38.0
[2020-09-20] VITALS (13 sets, daily range): BP systolic 123–144; BP diastolic 59–79; PULSE 55–61; RESP 12–20; TEMP 35.8–36.6; O2SAT 92–98; BMI 37.2
[2020-09-20] MEDS: ACETAMINOPHEN 325 MG TABLET 975 MG PO (11:57)
[2020-09-20] MEDS: CELECOXIB 200 MG CAPSULE PO (11:57)
[2020-09-20] MEDS: LACTATED RINGERS 1,000 ML 42 ML IV ×2 (12:14→15:07)
[2020-09-20] MEDS: VANCOMYCIN 1,000 MG/200 ML PIGGYBACK 200 MG IV (12:45)
--- NOTE | 2020-09-20 13:16 | PM.PREOP ---
Pre-operative Note COVID-19 COVID-19 status: Negative Interval Note History & Physical reviewed/Exam performed by Physician: Yes Changes to H&P: No
--- NOTE | 2020-09-20 13:17 | PM.OP.1 ---
Operative Date/Time/Diagnoses Date of procedure: 09/20/20 Time of procedure: 13:17 Pre-op diagnosis: Severe right knee OA Post-op diagnosis: same Procedure & Clinicians Procedure: Right total knee arthroplasty Same procedure as scheduled: Yes Indications: The patient has had progressively worsening right knee pain with radiographic changes consistent with arthritis. Non-operative management has failed and the patient has requested total knee replacement. The risks, benefits and alternatives to surgery were discussed with the patient prior to proceeding. Risks discussed included, but were not limited to, failure to relieve pain, stiffness, infection, nerve damage, deep venous thrombosis, pulmonary embolism, stroke, coma, heart attack, permanent paralysis and , as well as the potential need for eventual revision of the prosthetic. Surgeon: Fara Dhillon Structural Draftsman: Bryan Maher Anesthesia Type: General Operative Notes Findings: Severe right knee osteoarthritis, very tight knee, good stability, full range of motion Closure Type: primary Specimen(s): none sent Prosthetic devices, grafts, tissues, transplants, or devices: [facility] 2 size fix 6 femur, size 6 tibia, +9 poly, 38 mm round patella Applied: drain(s) Estimated Blood Loss (mL): 250 Blood products transfused: none Tourniquet time (min): 108 Procedure in detail: The patient was seen in the pre-operative area, where the patient identified the right knee as the operative site and this was marked with my initials. The patient received pre-operative antibiotics, and was taken to the operating room and placed on the operative table in the supine position. After satisfactory anesthesia, a time clock mechanic out was performed. The right leg was encircled with a tourniquet about the proximal thigh, and the leg was prepared from the toes to the tourniquet with ChloroPrep in the usual fashion and draped through sterile drapes. The leg was elevated and exsanguinated with Eschmark bandage and the tourniquet inflated to [250] mmHg pressure. The knee was approached through an approximately 18 cm incision centered over the patella and carried into the knee through a medial parapatellar arthrotomy. A portion of the medial and lateral meniscus was resected. Soft tissue was carefully mobilized around the patella the patella was measured with a caliper. Bone was resected from the patella. He had severe tightness of his knee and after the distal femoral cut the patella was read measured an additional 2 mm of bone were resected and drill holes were made in the patella and the patellar height was reconstituted with up an appropriate sized patellar component. A cover was then placed on the patella. A small amount of additional medial and lateral meniscus was resected. The visionare guide fit well to the distal femur. It looked like an appropriate distal femoral cut and the cut was made without difficulty. I meticulously mobilized the quad but it was still extremely tight making the surgery somewhat more difficult. The rotation was assessed and the appropriate size femoral guide was placed on the distal femur and finishing cuts were made. There was no evidence of notching. The anterior, posterior and chamfer cuts were then made. The posterior osteophytes and soft tissues were then removed. The posterior capsule was injected with part of a mixture of 60 ml 0.25% Marcaine mixed with 20 ml Exparel for post operative pain control. The remainder of this mixture was injected into the capsule and subcutaneous tissues during cement curing. The tibia was prepared and the visionaire guide fit well to the distal tibia. The rotation was assessed. The patient was placed in extension residual medial and lateral meniscus as well as any residual bone was carefully resected. 2 mm additional tibia was resected. Hemostasis was achieved especially posteriorly. Additional local was injected into the posterior capsule. The extension gap was assessed and additional releases for gap balancing were performed as necessary. It was checked with the gap director of customer acquisition. The femoral component was trial was placed and the notch was finished. Trial tibial and femoral components were then placed and the knee placed through a range of motion. Range of motion was [0-125], with good stability throughout the range. It was well balanced but it was a tight knee. The trials were then removed, and the tibia was finished. The bone was prepared with pulsatile lavage, and dried with a sponge. Cement was applied and the final prosthetics placed. Excess cement was removed during and after cement curing. An unconstrained poly trial was used during cementing. After confirming there was no extruded cement posteriorly, the final tibial insert was placed. The knee was copiously irrigated and the tourniquet deflated. Hemostasis was obtained with the Bovie. A drain was placed and brought out superolaterally. The capsule was closed with interrupted # 1 Vicryl. The subcutaneous layer was closed with barbed sutures, and the skin with a running 3-0 V-Lock suture and Surgical glue. An Aquacel Ag dressing was applied and the patient was taken to recovery having tolerated the procedure well. Complications: none Post-operative Condition: stable Disposition: Acute Care Plan for aftercare: The patient will be maintained on a standard total knee replacement protocol with weight bearing as tolerated. The patient will receive Eliquis and sequential compression devices for DVT prophylaxis. The patient will be discharged home when safe for the home environment.
--- NOTE | 2020-09-20 13:34 | PM.HP.1 ---
History of Present Illness History of Present Illness Date Patient Seen: 09/20/20 Time Patient Seen: 13:02 Chief complaint: *OPB* Narrative: Kwabena continues to note constant right knee pain. He is here for right total knee arthroplasty. We reviewed his history and physical in detail there was no change. Constant unrelenting right knee pain. Patient History Medical History ADHD Allergic rhinitis Arthritis Asthma Atrial fibrillation Bradyarrhythmia Depression Gout Heart murmur Hepatitis (1957) History of cardioversion History of echocardiogram History of pneumonia Hypertension Hypothyroid Hypothyroidism (acquired) Insomnia Jaundice (1957) Kidney stones LAFB (left anterior fascicular block) Mitral insufficiency Mononucleosis (1957) Obesity (BMI 30-39.9) Obstructive sleep apnea of adult Osteoarthritis Reactive airway disease Recurrent major depression in partial remission Rheumatic fever Sleep apnea Snoring Tachy-lydia syndrome Walking pneumonia Yellow fever (1957) Surgical History History of carpal tunnel release of both wrists (2004) History of colonoscopy History of hydrocelectomy (1996) History of surgery (10/13/19) History of surgery (2004) History of tonsillectomy and adenoidectomy Hx of bilateral cataract extraction (2012) Hx of eye surgery (2011) Hx of hand surgery (2001) Hx of hand surgery Hx of total knee arthroplasty Family & Social History Social History: household members spouse lives independently Yes caregiver/support person No Tobacco & Substance use: Smoking Status Never smoker alcohol intake current alcohol intake frequency holiday/special occasion Substance Use Type does not use Meds Home Medications and Allergies Home Medications Medication Instructions Recorded Confirmed Type chlorthalidone 25 mg PO QDAY #0 06/04/17 09/20/20 History oxybutynin chloride [Ditropan XL] 10 mg PO QDAY #0 06/04/17 09/20/20 History levothyroxine 125 mcg tablet 125 mcg PO DAILY 90 Days #90 tab 09/17/17 09/20/20 History apixaban 5 mg tablet 5 mg PO BID 08/05/18 09/20/20 History ascorbic acid (vitamin C) 1,000 mg 1 gram PO DAILY tab 06/23/19 09/20/20 History tablet cholecalciferol (vitamin D3) 25 1,000 unit PO DAILY 06/23/19 09/20/20 History mcg (1,000 unit) tablet dronedarone 400 mg tablet 400 mg PO BID tab 06/23/19 09/02/20 History magnesium oxide 400 mg PO DAILY 06/23/19 09/20/20 History diltiazem HCl 30 mg tablet 30 mg PO Q4H PRN tab 12/29/19 09/20/20 History albuterol 90 mcg INHALATION Q4H PRN 08/10/20 09/20/20 History dronedarone [Multaq] 400 mg PO BID 08/10/20 09/20/20 History fluticasone propionate 1 spray INTRANASAL DAILY 08/10/20 09/02/20 History atomoxetine 80 mg capsule 80 mg PO QAM #30 cap 09/02/20 09/20/20 Rx acetaminophen 650 mg PO DAILY 09/20/20 09/20/20 History venlafaxine 75 mg PO BID 09/20/20 09/20/20 History Allergies Allergy/AdvReac Type Severity Reaction Status Date / Time oxycodone AdvReac Severe difficulty Verified 09/02/20 15:23 breathing, rash, hives metoprolol AdvReac Unknown Bradycardia Verified 09/02/20 15:23 Review of Systems Review of Systems ROS: Yes All systems reviewed with the patient and are negative except as otherwise documented Exam Vital Signs (past 8 hours): - 09/20/20 11:42 Temperature 97.8 F Pulse Rate 61 Respiratory Rate 16 Blood Pressure 144/78 H Pulse Oximetry 98 Oxygen Delivery Method Room Air Narrative Exam Narrative: HEENT is benign, lungs are clear cor regular rate and rhythm abdomen soft and benign, right knee range of motion 0-120, tenderness medially, well-healed anterior tibial scar, tibial tubeosity prominence consistent with history of Eleanor Braga Assessment & Plan Assessment & Plan narrative: Severe right knee osteoarthritis plan is for right total knee arthroplasty. PAR discussed again with the patient. He tolerated the lot it in the past but had difficulty with oxycodone.
[2020-09-20] MEDS: CEFAZOLIN 1 GM VIAL 2 GM IV ×2 (13:55→21:29)
[2020-09-20] MEDS: TRANEXAMIC ACID 1,000 MG VIAL 1000 MG INJ ×2 (14:10→15:51)
[2020-09-20] MEDS: BUPIVACAINE 0.5% W/ EPI (PF) 30 ML VIAL INJ (14:29)
[2020-09-20] MEDS: BUPIVACAINE LIPOSOME 266 MG/20 ML VIAL INJ (14:30)
--- NOTE | 2020-09-20 15:00 | DI.RAD.S_ITS ---
PROCEDURE: XR KNEE RT 1TO2V INDICATIONS: RIGHT TOTAL KNEE TECHNIQUE: 2 view(s) of the knee acquired. COMPARISON: [facility] [place], [place], XR KNEE ARTHRITIC SERIES BI, 06/24/2019, 15:13. [facility], [place], XR KNEE LT 1TO2V, 02/18/2020, 15:11. FINDINGS: Bones: Patient is status post knee joint arthroplasty. Hardware components are in expected positions. Visualized bony structures are intact. Soft tissues: Overlying postoperative changes are noted. IMPRESSION: Expected postoperative appearance of the right knee total arthroplasty. Dictated by: Rogelio Barahona M.D. on 09/21/2020 at 9:55 Approved by: Rogelio Barahona M.D. on 09/21/2020 at 9:56
[2020-09-20] MEDS: LACTATED RINGERS 1,000 ML 100 ML IV (18:12)
[2020-09-20] MEDS: hydrOXYzine pamoate 25 MG CAPSULE PO (18:47)
--- NOTE | 2020-09-20 19:09 | PC.NURSE ---
Addendum entered by Iesha Camarena R.N. 09/20/20 21:50: Pt had relatively uneventful evening. ' Denies discomfort at this time. IVF continue as per orders. Hemavac intact/patent. Jong wrap/MEDHAT dsg CDI Call light w/in reach, bed alarm on for pt safety. Continue w/plan of care. Original Note: Pt arrived from PACU at 1745 Alert/oriented. Lungs clear, SpO2 96% RA IVF hung as per orders. Right knee w/MEDHAT dsg % hemavac.CDI HV unclamped as per orders. SCD on at this time. Call light w/in reach, bed alarm on for pt safety.
[2020-09-20] MEDS: ACETAMINOPHEN 325 MG TABLET 650 MG PO (21:27)
[2020-09-20] MEDS: VENLAFAXINE ER 75 MG CAP PO (21:28)
[2020-09-20] MEDS: DOCUSATE 100 MG CAPSULE PO (21:28)
[2020-09-21] VITALS (7 sets, daily range): BP systolic 121–139; BP diastolic 64–78; PULSE 55–65; RESP 16–20; TEMP 36.2–37; O2SAT 94–98
[2020-09-21] MEDS: HYDROMORPHONE 2 MG TABLET PO ×3 (00:43→13:32)
--- NOTE | 2020-09-21 02:08 | PC.NURSE ---
Voided 10 cc since admitted to the floor. States I don't have any sensation down in my lower abdomen. Bladder scanned noted 988 cc in his bladder. Ketty MOCTEZUMA & Gabriela MOCTEZUMA performed In & Out cath. Drained 1200 CC in his bladder. Will cont. POC & monitor.
[2020-09-21] MEDS: LACTATED RINGERS 1,000 ML 100 ML IV (04:18)
[2020-09-21 05:06] LABS: Hematocrit 36.9 % (41-53); Hemoglobin 12.9 g/dL (13.5-17.5)
[2020-09-21] MEDS: CEFAZOLIN 1 GM VIAL 2 GM IV (06:11)
[2020-09-21] MEDS: LEVOTHYROXINE 125 MCG TABLET PO (06:11)
[2020-09-21] MEDS: MAGNESIUM OXIDE 400 MG TABLET PO (08:38)
[2020-09-21] MEDS: CHOLECALCIFEROL (VITAMIN D3) 1,000 UNIT TABLET 1000 UNIT PO (08:39)
[2020-09-21] MEDS: CHLORTHALIDONE 25 MG TABLET PO (08:39)
[2020-09-21] MEDS: ACETAMINOPHEN 325 MG TABLET 650 MG PO ×3 (08:39→20:46)
[2020-09-21] MEDS: DOCUSATE 100 MG CAPSULE PO ×2 (08:40→20:46)
[2020-09-21] MEDS: OXYBUTYNIN 5 MG ER TAB 10 MG PO (08:40)
[2020-09-21] MEDS: VENLAFAXINE ER 75 MG CAP PO ×2 (08:40→20:46)
[2020-09-21] MEDS: FLUTICASONE 120 SPRAY/16 GM SPRAY.SUSP NASAL (08:41)
[2020-09-21] MEDS: ASCORBIC ACID 500 MG TABLET 1000 MG PO (08:44)
--- NOTE | 2020-09-21 09:10 | PT.IIE ---
Current Diagnoses Unilateral primary osteoarthritis, right knee (09/20/20) Presence of left artificial knee joint (09/20/20) Surgery Performed Operation Date: 09/20/20 12:45 Actual Procedures p Total Knee Arthroplasty(Right) - Fara Dhillon MD Surgical History (Last Reviewed 09/21/20 @ 10:10 by Bryan Maher PA-C) History of carpal tunnel release of both wrists (2004) History of colonoscopy History of hydrocelectomy (1996) History of surgery (10/13/19) History of surgery (2004) History of tonsillectomy and adenoidectomy Hx of bilateral cataract extraction (2012) Hx of eye surgery (2011) Hx of hand surgery (2001) Hx of hand surgery Hx of total knee arthroplasty Medical History (Last Reviewed 09/21/20 @ 10:10 by Bryan Maher PA-C) ADHD Allergic rhinitis Arthritis Asthma Atrial fibrillation Bradyarrhythmia Depression Gout Heart murmur Hepatitis (1957) History of cardioversion History of echocardiogram History of pneumonia Hypertension Hypothyroid Hypothyroidism (acquired) Insomnia Jaundice (1957) Kidney stones LAFB (left anterior fascicular block) Mitral insufficiency Mononucleosis (1957) Obesity (BMI 30-39.9) Obstructive sleep apnea of adult Osteoarthritis Reactive airway disease Recurrent major depression in partial remission Rheumatic fever Sleep apnea Snoring Tachy-lydia syndrome Walking pneumonia Yellow fever (1957) Physical Therapy Inpatient Evaluation/Re-Eval M1 PT/OT-IP Prior Functional Status Start: 09/21/20 12:18 Freq: NEEDED Status: Active Protocol: Document 09/21/20 09:10 AB (Rec: 09/21/20 12:30 AB [email or web address]) Medical Review Prior Functional Status Medical History Reviewed Yes Communication able to make needs known Mobility and Gait pt stated that he is independent with all mobilities and ambulation wtihout AD Social History Household Members spouse Living Arrangements House Number of Floors (Floors) One Floor Number of Stairs To Enter/Railing? 2 steps to enter without rails has to use a step stool to get up onto the bed Home Environment Standard Height Toilet,Walk in Shower,Built-In Shower Seat Home Equipment Front Wheel Walker,Straight Cane,Hand Held Shower,Grab Bars In Shower M2 PT-IP Current Condition Start: 09/21/20 12:18 Freq: NEEDED Status: Active Protocol: Document 09/21/20 09:10 AB (Rec: 09/21/20 12:30 AB [email or web address]) Physical Therapy Current Condition Current Condition Evaluation Date 09/21/20 Treatment Diagnosis s/p R TKA; difficulty in walking Onset Date 09/20/20 Weight Bearing Status Weight Bearing Status Weight Bear as Tolerated Allowed Weight Bearing Amount (enter % RLE WBAT or #) (%) M3 PT-IP Subjective Start: 09/21/20 12:18 Freq: NEEDED Status: Active Protocol: Document 09/21/20 09:10 AB (Rec: 09/21/20 12:30 AB [email or web address]) Subjective Physical Therapy Visit Type Type Initial Evaluation Visit Start Time 09:10 Visit Stop Time 10:15 Total Visit Minutes 65 Number of FIELD LOGISTICS COORDINATOR Visits 0 Physical Therapy Visit Comments Patient Comments pt is agreeable to do PT Therapy Pain Assessment Pain When Pain Assessed At Rest Pain Present Pain Present Pain Reported Location Left Knee Intensity 3 Scale Used Numeric (0 - 10) Pain Behaviors Guarding Pain Management Techniques Apply Cold,Modification of Treatment,Re-positioning, Timing of Activity with Medications M4 PT-IP Mobility and Gait Start: 09/21/20 12:18 Freq: NEEDED Status: Active Protocol: Document 09/21/20 09:10 AB (Rec: 09/21/20 12:30 AB [email or web address]) PT-Bed Mobility Assessment Supine to Sit Supine to Sit Standby Assistance PT-Transfer Assessment Sit to and From Stand Sit to and from Stand Moderate Assistance,1 Person Assistance,Use of Upper Extremities Equipment Transfer Assistive Device Gait Belt,Front Wheeled Walker Orthotic/Prosthetic Devices or Brace: No Transfers Transfer Destination Chair Transfer Technique Stand Step Pivot Transfer Ability Level of Assist Moderate Assistance,1 Person Assistance,Use of Upper Extremities Comments Mobility Comments pt completed supine to sit SBA . was ablet o sit on EOB SBA. completed sit to stand mod A and cues. transferred to chair using fWW mod A with LOB posteriorly requiring assist to recover. pt rested. completed sit to stand again mod A from chair. ambulated in room using FWW mod A ~ 25 ft with (+) LOB and R knee buckling requiring assist to recover. pt also presents with heavy UE use on FWW during ambulation and pt can be impulsive. pt educated on safety. pt agreed to sit up on chair. positioned. call light and table placed within reach. caregiver training set up at ~ 130 pm later today. Gait Assessment Gait Gait Assistance Required: Moderate Assistance,1 Person Assist Distance (Feet) 25 Able to Maintain Weight Bearing Status Yes During Gait Assistive Devices Assistive Device Gait Belt,Front Wheeled Walker Orthotic/Prosthetic Devices or Brace: No Gait Deviations General Gait Pattern Antalgic,Decreased Stride Length,Decreased Feet Clearance Factors Limiting Gait Function Factors Limiting Gait Function Decreased Activity Tolerance, Decreased Strength,Difficulty Following Directions,Limited Range of Motion,Pain,Poor Balance,Poor Safety Awareness Comments Gait Comments pls refer to mobility section for details PT-Balance Assessment Sitting Balance and Reactions Static Sitting Balance Ability Good Dynamic Sitting Balance Ability Good Standing Balance and Reactions Static Standing Balance Ability Fair Dynamic Standing Balance Ability Poor Device Used FWW M5 PT-IP Objective Assessments Start: 09/21/20 12:18 Freq: NEEDED Status: Active Protocol: Document 09/21/20 09:10 AB (Rec: 09/21/20 12:30 AB [email or web address]) Orientation Orientation/Cognition Level of Alertness Alert Orientation Name Language Function Ability No Deficits Noted Safety Awareness Decreased Safety Awareness Memory Description Short Term Impaired Gross Range of Motion Lower Extremity ROM Assessment Right Impaired Impairments R knee flexion: ~ 70 deg R knee extion : ~ 15 deg less to 0 Strength Lower Extremity Strength Assessment Right Impaired Knee 3+/5 Sensation Assessment Sensation Gross Sensation WNL Muscle Tone Muscle Tone WNL Yes M6 PT-IP Treatment Start: 09/21/20 12:18 Freq: NEEDED Status: Active Protocol: Document 09/21/20 09:10 AB (Rec: 09/21/20 12:30 AB [email or web address]) Physical Therapy Treatment Exercises Exercises Heel Slides Education Education Provided Precautions,Weight Bearing Status,Post-Op Packet,Safety M7 PT-IP Assessment and Plan Start: 09/21/20 12:18 Freq: NEEDED Status: Active Protocol: Document 09/21/20 09:10 AB (Rec: 09/21/20 12:30 AB [email or web address]) PT Summary Assessment and Plan Potential Rehabilitation Potential Good Status of Condition at Evaluation Evolving Summary Impairments Pain,ROM,Strength,Balance, Coordination,Cognition,Bed Mobility,Transfers,Gait, Activity Tolerance Assessment Summary pt requiring mod A using FWW for ambulation and presents with unsteady gait with (+) LOB x 2 and R knee buckling. caregiver training set up at ~ 130 pm this afternoon. will continue to assess progress for safe d/c but may require SNF at this time. pt also has steps to enter the house without rails and stair climbing training will be completed safety before pt can go home. Goals Bed Mobility Goal Standby Assistance Transfer Goal Standby Assistance,Front Wheeled Walker Gait Goal Standby Assistance,Front Wheel Walker Gait Distance 150 Other Goals up/down 2 steps using SPC/ SPINDRAW OPERATOR mod A up/down step stool using FWW SBA Days to Meet Goals 5 Frequency of Treatment Frequency Of Treatment Twice a Day Treatment Plan Physical Therapy Treatment Plan Bed Mobility Training,Transfer Training,Gait Training, Therapeutic Exercise,Balance Retraining,Post Op Education, Discharge Planning,Hot or Cold Pack,Neuromuscular Re-ed, Coordination Retraining,Manual Therapy Precautions Other Precautions RLE WBAT Recommendations To Nursing Amount of Assist Needed 1 Person Assist Discharge Recommendations PT Discharge Recommendations Home with 19/11 Assist Available,Home Health,SNF Rehab,Home vs SNF Transportation Needs at Discharge Private Vehicle,Wheelchair/ Cabulance
[2020-09-21] MEDS: DRONEDARONE 400 MG TABLET PO ×2 (09:43→20:46)
--- NOTE | 2020-09-21 10:07 | P.PN_ITS ---
Subjective Subjective Date Patient Seen: 09/21/20 Time Patient Seen: 10:07 Interval history: Pain is [id number]. Denies fever or chills. No nausea or vomiting. Had difficulty voiding this morning and required straight catheterization. Has not yet voided on his own this morning. Exam Vital Signs (past 8 hours): - 09/21/20 05:30 09/21/20 07:51 Temperature 97.7 F 97.8 F Pulse Rate 60 55 L Respiratory Rate 16 16 Blood Pressure 133/72 121/72 Pulse Oximetry 94 97 Oxygen Delivery Method Room Air Oxygen Flow Rate 0 Narrative Exam Narrative: 75-year-old male resting comfortably in bed in no apparent distress. Right knee dressing is clean, dry and intact. Phoebe is on and fu nctioning. Motor functions intact distal right lower extremity. Sensation grossly intact to light touch. Objective Labs Result Diagrams: 09/21/20 04:55 Labs: Laboratory Results - last 24 hr 09/21/20 04:55 Hgb 12.9 L Hct 36.9 L PFSH Medical History ADHD Allergic rhinitis Arthritis Asthma Atrial fibrillation Bradyarrhythmia Depression Gout Heart murmur Hepatitis (1957) History of cardioversion History of echocardiogram History of pneumonia Hypertension Hypothyroid Hypothyroidism (acquired) Insomnia Jaundice (1957) Kidney stones LAFB (left anterior fascicular block) Mitral insufficiency Mononucleosis (1957) Obesity (BMI 30-39.9) Obstructive sleep apnea of adult Osteoarthritis Reactive airway disease Recurrent major depression in partial remission Rheumatic fever Sleep apnea Snoring Tachy-lydia syndrome Walking pneumonia Yellow fever (1957) Surgical History History of carpal tunnel release of both wrists (2004) History of colonoscopy History of hydrocelectomy (1996) History of surgery (10/13/19) History of surgery (2004) History of tonsillectomy and adenoidectomy Hx of bilateral cataract extraction (2012) Hx of eye surgery (2011) Hx of hand surgery (2001) Hx of hand surgery Hx of total knee arthroplasty Social History marital status: details: to Twyla, lives in [place] household members: spouse lives independently: Yes caregiver/support person: No housing: house education level: college 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 Drain total 145 last shift. Mobilize with physical therapy. Weightbearing as tolerated. Eliquis and SCDs for DVT prophylaxis. is home to assist him however she is limited to to rotator cuff tear. I would like him to be more stable and work on strength today and likely discharge home tomorrow.
--- NOTE | 2020-09-21 12:39 | CM.DANOTE ---
DCP: Case received, EMR reviewed and met with patient. , Twyla, was also at bedside.Introduced self and role. Was able to obtain information from patient regarding baseline activity status prior to surgery. DCP assessment completed with information currently available. Patient is a 75 year old male who admitted yesterday morning to the care of the orthopedic team. PCP: Dr. Mcmullen. Payer: confimed: TANIA Richards. Patient came to the hospital via private vehicle for a surgical procedure. He had right total knee arthroplasty. Patient has had history of right knee osteoarthritis. Met with patient and at bedside. Patient is alert and oriented, pleasant. He and his spouse reside in [place]. He is retired. He mentioned that he uses no DME devices, and drives. He mentioned, this is his second knee surgery, had the other one done before. He has two steps to get into his house. Patient has had difficulty voiding. Yesterday, had cath,1200 ccs out, today 1999. He will also be working with P.T. Patient does have [employer] ordered, was already ordered through orthopedic department. P: DCP to continue to follow. Plan at this time is home with [employer], but will need to see how he does with P.T. Brina Schroeder RN/Top Icer
--- NOTE | 2020-09-21 13:30 | PT.IPTN ---
Current Diagnoses Unilateral primary osteoarthritis, right knee (09/20/20) Presence of left artificial knee joint (09/20/20) Surgery Performed Operation Date: 09/20/20 12:45 Actual Procedures p Total Knee Arthroplasty(Right) - Fara Dhillon MD Physical Therapy Treatment Note M2 PT-IP Current Condition Start: 09/21/20 12:18 Freq: NEEDED Status: Active Protocol: Document 09/21/20 09:10 AB (Rec: 09/21/20 12:30 AB [email or web address]) Physical Therapy Current Condition Current Condition Evaluation Date 09/21/20 Treatment Diagnosis s/p R TKA; difficulty in walking Onset Date 09/20/20 Weight Bearing Status Weight Bearing Status Weight Bear as Tolerated Allowed Weight Bearing Amount (enter % RLE WBAT or #) (%) M3 PT-IP Subjective Start: 09/21/20 12:18 Freq: NEEDED Status: Active Protocol: Document 09/21/20 13:30 AB (Rec: 09/21/20 16:40 AB [email or web address]) Subjective Physical Therapy Visit Type Type Treatment Note Visit Start Time 13:30 Visit Stop Time 14:40 Total Visit Minutes 70 Number of HOUSE PARENT Visits 0 Physical Therapy Visit Comments Patient Comments pt is agreeable to do PT Therapy Pain Assessment Pain When Pain Assessed At Rest Pain Present Pain Present Pain Reported Location Left Knee Intensity 3 Scale Used Numeric (0 - 10) Pain Management Techniques Distraction,Modification of Treatment,Re-positioning, Timing of Activity with Medications M4 PT-IP Mobility and Gait Start: 09/21/20 12:18 Freq: NEEDED Status: Active Protocol: Document 09/21/20 13:30 AB (Rec: 09/21/20 16:40 AB [email or web address]) PT-Bed Mobility Assessment Supine to Sit Supine to Sit Standby Assistance Sit to Supine Sit to Supine Standby Assistance PT-Transfer Assessment Sit to and From Stand Sit to and from Stand Contact Guard Assistance,1 Person Assistance,Use of Upper Extremities Equipment Transfer Assistive Device Gait Belt,Front Wheeled Walker Orthotic/Prosthetic Devices or Brace: No Transfers Transfer Destination Chair Transfer Technique ambulated using FWW Transfer Ability Level of Assist Contact Guard Assistance, Minimal Assistance,1 Person Assistance,Use of Upper Extremities Comments Mobility Comments caregiver training conducted. pt completed supine to sit SBA. educated spouse on how to use safety belt and how to assist pt. spouse was able to sharla belt on pt. spouse assisted pt with sit to stand and ambulation in room using fWW. rested on chair. agreed to ambulate in the hallway and do stairs. completed ambulation using FWW ~ 100 ft with spouse assisting. educated pt on stair climbing using SPC and WINDOW GLAZIER. PT assisted: completed up/down platform step using SPC and WINDOW GLAZIER max A and max cues. educated pt on safety and techniques. completed up/down steps again with min to mod A and pt is steadier. educated spouse on how to assist pt on step. spouse assist pt on up /down platform step and PT providing CGA for safety. assisted pt back to room. pt ambulated using FWW back to bed CGA and cues. sit to supine SBA. positioned pt in bed. call light and table placed within reach. set up further caregiver training with spouse and spouse will be in at ~ 10 am tomorrow for training. Gait Assessment Gait Gait Assistance Required: Contact Guard Assist,Minimum Assistance Distance (Feet) 100 Able to Maintain Weight Bearing Status Yes During Gait Assistive Devices Assistive Device Gait Belt,Front Wheeled Walker Orthotic/Prosthetic Devices or Brace: No Gait Deviations General Gait Pattern Antalgic,Decreased Stride Length,Decreased Feet Clearance Factors Limiting Gait Function Factors Limiting Gait Function Decreased Activity Tolerance, Decreased Strength,Limited Range of Motion,Pain,Poor Balance,Poor Safety Awareness Comments Gait Comments pls refer to mobility section for details Stair Climbing Assessment Evaluation Level of Assist On Stairs Moderate Assistance,Maximal Assistance,1 Person Assistance Devices Stair Climbing Assistive Devices Straight Cane Technique/Endurance Stair Climbing Direction Ascend and Descend Stair Climbing Technique Step to Step Number of Steps Climbed 1 Stair Climbing Set # Repetitions (reps) 3 Comments Stair Climbing Comments pls refer to mobility section for details M5 PT-IP Objective Assessments Start: 09/21/20 12:18 Freq: NEEDED Status: Active Protocol: Document 09/21/20 09:10 AB (Rec: 09/21/20 12:30 AB [id number]) Orientation Orientation/Cognition Level of Alertness Alert Orientation Name Language Function Ability No Deficits Noted Safety Awareness Decreased Safety Awareness Memory Description Short Term Impaired Gross Range of Motion Lower Extremity ROM Assessment Right Impaired Impairments R knee flexion: ~ 70 deg R knee extion : ~ 15 deg less to 0 Strength Lower Extremity Strength Assessment Right Impaired Knee 3+/5 Sensation Assessment Sensation Gross Sensation WNL Muscle Tone Muscle Tone WNL Yes M6 PT-IP Treatment Start: 09/21/20 12:18 Freq: NEEDED Status: Active Protocol: Document 09/21/20 13:30 AB (Rec: 09/21/20 16:40 AB [id number]) Physical Therapy Treatment Education Education Provided Safety M7 PT-IP Assessment and Plan Start: 09/21/20 12:18 Freq: NEEDED Status: Active Protocol: Document 09/21/20 13:30 AB (Rec: 09/21/20 16:40 AB [id number]) PT Summary Assessment and Plan Potential Rehabilitation Potential Good Summary Impairments Pain,ROM,Strength,Balance, Coordination,Sensation,Tone, Cognition,Bed Mobility, Transfers,Gait,Activity Tolerance Progress Towards Goals Slow Progress due to Pain,Slow Progress due to Activity Tolerance Assessment Summary caregiver training conducted and further training is needed and set up for tomorrow at 10 am. spouse was able to assist pt with sit to stand and ambulation using FWW but required instructions from PT. will have to do more training prior to d/c home. Goals Bed Mobility Goal Standby Assistance Transfer Goal Standby Assistance,Front Wheeled Walker Gait Goal Standby Assistance,Front Wheel Walker Gait Distance 150 Other Goals up/down 2 steps using SPC/ WINDOW GLAZIER mod A up/down step stool using FWW SBA Days to Meet Goals 5 Frequency of Treatment Frequency Of Treatment Twice a Day Treatment Plan Physical Therapy Treatment Plan Bed Mobility Training,Transfer Training,Gait Training, Therapeutic Exercise,Balance Retraining,Post Op Education, Discharge Planning,Hot or Cold Pack,Neuromuscular Re-ed, Coordination Retraining,Manual Therapy Other Recommendations and Next Treatment caregiver trainin am Precautions Other Precautions RLE WBAT Recommendations To Nursing Amount of Assist Needed 1 Person Assist Discharge Recommendations PT Discharge Recommendations Home with 19/11 Assist Available,Home Health Transportation Needs at Discharge Private Vehicle
--- NOTE | 2020-09-21 14:44 | PC.NURSE ---
PT A&OX3, LS CTA, VSS, afebrile on RA. Able to participate with PT today with manageable pain PRN dilaudid 2 mg x2 with scheduled tylenol today. Declines aspirin and Ibuprofen (due to history). IVF LR at 100ml/ hr. Pt with good po intake. Pt with urge to void after breakfast but unable, straight cath x1 resulting in 1400ml clear light yellow urine. PT/OT working with pt and ambulating in [place] this afternoon. LVM with PA regarding urinary retention. Endorsed to oncoming RN. Continuous monitoring.
[2020-09-21] MEDS: IBUPROFEN 400 MG TABLET PO ×2 (18:03→20:46)
[2020-09-21] MEDS: ASPIRIN EC 81 MG TABLET PO (20:47)
[2020-09-21] MEDS: APIXABAN 5 MG TABLET PO (20:47)
--- NOTE | 2020-09-21 23:25 | PC.NURSE ---
A&O x 4. VSS. Pain 0/10 when not moving, 6/10 with movement. Patient had not been able to void on own all day, bladder scan at 1700 showed 750 cc of urine. Contacted in service education teacher provider who ordered walls catheter insertion. Walls was placed and drained 1075 cc light yellow urine. 1 person SBA. Saline locked. Good appetite. SCDs on BLE. Call light within reach, bed low.
[2020-09-22] VITALS (7 sets, daily range): BP systolic 105–125; BP diastolic 51–66; PULSE 49–110; RESP 15–22; TEMP 36.3–36.9; O2SAT 93–99
[2020-09-22] MEDS: LEVOTHYROXINE 125 MCG TABLET PO (06:11)
[2020-09-22] MEDS: IBUPROFEN 400 MG TABLET PO ×4 (08:31→20:45)
[2020-09-22] MEDS: CHOLECALCIFEROL (VITAMIN D3) 1,000 UNIT TABLET 1000 UNIT PO (08:32)
[2020-09-22] MEDS: MAGNESIUM OXIDE 400 MG TABLET PO (08:32)
[2020-09-22] MEDS: ASPIRIN EC 81 MG TABLET PO ×2 (08:32→20:44)
[2020-09-22] MEDS: VENLAFAXINE ER 75 MG CAP PO ×2 (08:32→20:44)
[2020-09-22] MEDS: TAMSULOSIN 0.4 MG CAPSULE PO (08:32)
[2020-09-22] MEDS: HYDROMORPHONE 2 MG TABLET PO ×3 (08:32→20:44)
[2020-09-22] MEDS: ASCORBIC ACID 500 MG TABLET 1000 MG PO (08:32)
[2020-09-22] MEDS: DOCUSATE 100 MG CAPSULE PO ×2 (08:33→20:45)
[2020-09-22] MEDS: ACETAMINOPHEN 325 MG TABLET 650 MG PO ×3 (08:33→20:45)
[2020-09-22] MEDS: CHLORTHALIDONE 25 MG TABLET PO (08:33)
[2020-09-22] MEDS: SODIUM CHLORIDE 0.9% FLUSH 10 ML IV ×2 (08:44→20:47)
[2020-09-22] MEDS: DRONEDARONE 400 MG TABLET PO ×2 (09:41→20:46)
[2020-09-22] MEDS: FLUTICASONE 120 SPRAY/16 GM SPRAY.SUSP NASAL (09:41)
--- NOTE | 2020-09-22 10:55 | PT.IPTN ---
Current Diagnoses Unilateral primary osteoarthritis, right knee (09/20/20) Presence of left artificial knee joint (09/20/20) Surgery Performed Operation Date: 09/20/20 12:45 Actual Procedures p Total Knee Arthroplasty(Right) - Fara Dhillon MD Physical Therapy Treatment Note M2 PT-IP Current Condition Start: 09/21/20 12:18 Freq: NEEDED Status: Active Protocol: Document 09/21/20 09:10 AB (Rec: 09/21/20 12:30 AB [id number]) Physical Therapy Current Condition Current Condition Evaluation Date 09/21/20 Treatment Diagnosis s/p R TKA; difficulty in walking Onset Date 09/20/20 Weight Bearing Status Weight Bearing Status Weight Bear as Tolerated Allowed Weight Bearing Amount (enter % RLE WBAT or #) (%) M3 PT-IP Subjective Start: 09/21/20 12:18 Freq: NEEDED Status: Active Protocol: Document 09/22/20 10:55 AB (Rec: 09/22/20 11:57 AB [id number]) Subjective Physical Therapy Visit Type Type Treatment Note Visit Start Time 10:55 Visit Stop Time 11:25 Total Visit Minutes 30 Notes checked on pt at ~1000 am for caregiver training but spouse still not in the room and pt stated that pt just left the house ~ 15 min and will take 30 min to arrive. checked back on the after 1 hour and spouse in room. Number of GUM SCORING MACHINE OPERATOR Visits 0 Physical Therapy Visit Comments Patient Comments pt stated that he has a lot of pain and might have skipped on his pain meds last night. Therapy Pain Assessment Pain When Pain Assessed At Rest Pain Present Pain Present Pain Reported Location Left Knee Intensity 8 Scale Used Numeric (0 - 10) Pain Management Techniques Distraction,Modification of Treatment,Re-positioning, Timing of Activity with Medications M4 PT-IP Mobility and Gait Start: 09/21/20 12:18 Freq: NEEDED Status: Active Protocol: Document 09/22/20 10:55 AB (Rec: 09/22/20 11:57 AB [id number]) PT-Bed Mobility Assessment Supine to Sit Supine to Sit Standby Assistance Sit to Supine Sit to Supine Maximum Assistance,1 Person Assistance PT-Transfer Assessment Sit to and From Stand Sit to and from Stand Contact Guard Assistance, Minimal Assistance,Maximum Assistance,1 Person Assistance ,Use of Upper Extremities Equipment Transfer Assistive Device Gait Belt,Front Wheeled Walker Orthotic/Prosthetic Devices or Brace: No Transfers Transfer Destination Bed,Chair Transfer Ability Level of Assist Contact Guard Assistance, Minimal Assistance,Maximum Assistance,1 Person Assistance Comments Mobility Comments pt in bed and spouse in room. caregiver training conducted. pt completed supine to sit SBA. spouse was able to put safety belt on pt and assisted pt with ambulation in room using FWW. pt walked in the hallway and spouse assisting. after ~ 40 ft of ambulation in the hallway, pt c/o feeling fuzzy and nauseated and instructed to sit on w/c. assisted back to his room and stated that he has to go back to bed. informed nurse that pt is not feeling well and nurse Sadia stated that she knows he is nauseated and stated if PT will get pt back to bed. informed nurse that PT will but just to inform that pt is not feeling well. pt started to wheeze. completed sit to stand max A and step transfer to bed max A using FWW. max A for sit to supine. positioned in bed. BP checked 105/57, O2 sat 80% and HR 48 bpm. informed nurse and then came in to the room. Left pt with nurse and spouse. Gait Assessment Gait Gait Assistance Required: Contact Guard Assist,Minimum Assistance Distance (Feet) 40 Able to Maintain Weight Bearing Status Yes During Gait Assistive Devices Assistive Device Gait Belt,Front Wheeled Walker Orthotic/Prosthetic Devices or Brace: No Gait Deviations General Gait Pattern Antalgic,Decreased Stride Length,Decreased Feet Clearance Factors Limiting Gait Function Factors Limiting Gait Function Decreased Activity Tolerance, Decreased Strength,Limited Range of Motion,Pain,Poor Balance M5 PT-IP Objective Assessments Start: 09/21/20 12:18 Freq: NEEDED Status: Active Protocol: Document 09/21/20 09:10 AB (Rec: 09/21/20 12:30 AB [id number]) Orientation Orientation/Cognition Level of Alertness Alert Orientation Name Language Function Ability No Deficits Noted Safety Awareness Decreased Safety Awareness Memory Description Short Term Impaired Gross Range of Motion Lower Extremity ROM Assessment Right Impaired Impairments R knee flexion: ~ 70 deg R knee extion : ~ 15 deg less to 0 Strength Lower Extremity Strength Assessment Right Impaired Knee 3+/5 Sensation Assessment Sensation Gross Sensation WNL Muscle Tone Muscle Tone WNL Yes M6 PT-IP Treatment Start: 09/21/20 12:18 Freq: NEEDED Status: Active Protocol: Document 09/22/20 10:55 AB (Rec: 09/22/20 11:57 [id number]) Physical Therapy Treatment Education Education Provided Safety M7 PT-IP Assessment and Plan Start: 09/21/20 12:18 Freq: NEEDED Status: Active Protocol: Document 09/22/20 10:55 (Rec: 09/22/20 11:57 [id number]) PT Summary Assessment and Plan Potential Rehabilitation Potential Good Summary Impairments Pain,ROM,Strength,Balance, Coordination,Sensation,Tone, Cognition,Bed Mobility, Transfers,Gait,Activity Tolerance Progress Towards Goals Slow Progress due to Pain,Slow Progress due to Activity Tolerance Assessment Summary initiated caregiver training but unable to complete due to pt's c/o nausea and SOB. will continue to assess and attempt caregiver training again. Goals Bed Mobility Goal Standby Assistance Transfer Goal Standby Assistance,Front Wheeled Walker Gait Goal Standby Assistance,Front Wheel Walker Gait Distance 150 Other Goals up/down 2 steps using SPC/ GUM SCORING MACHINE OPERATOR mod A up/down step stool using FWW SBA Days to Meet Goals 5 Frequency of Treatment Frequency Of Treatment Twice a Day Treatment Plan Physical Therapy Treatment Plan Bed Mobility Training,Transfer Training,Gait Training, Therapeutic Exercise,Balance Retraining,Post Op Education, Discharge Planning,Hot or Cold Pack,Neuromuscular Re-ed, Coordination Retraining,Manual Therapy Precautions Other Precautions RLE WBAT Recommendations To Nursing Amount of Assist Needed 1 Person Assist Discharge Recommendations PT Discharge Recommendations Home with 24 Assist Available,Home Health Transportation Needs at Discharge Private Vehicle
[2020-09-22] MEDS: hydrOXYzine pamoate 25 MG CAPSULE PO (11:09)
[2020-09-22] MEDS: ONDANSETRON 4 MG/2 ML INJ IV (11:24)
[2020-09-22] MEDS: ALBUTEROL 2.5 MG/3 ML NEB (ADULT) INH (11:30)
--- NOTE | 2020-09-22 12:39 | CM.DPC ---
DCP Cont: Called Coreen at [facility] to ensure that they do have orders set up from orthopedic office. Confirmed that they do have orders for P.T, and bath aide. Let Coreen know that she will be updated upon discharge. P: DCP to continue to follow. Plan is home with [facility] P.T, and bath aide. [place] will just need a DC Summary, they have all other documents set up by orthopedic office. Brina Schroeder RN/Propeller Driven Airplane Mechanic
--- NOTE | 2020-09-22 15:19 | P.PN_ITS ---
Subjective Subjective Date Patient Seen: 09/22/20 Time Patient Seen: 15:20 Interval history: Patient states that he is in mild discomfort at rest. He reports an episode of atrial fibrillation while working with physical therapy today that caused him to feel lightheaded and gave him the sensation that he could not catch his breath. He notes an episode earlier in the morning today where his heart rate dropped into the 30s. He states that his pain has improved since yesterday. At this time the patient denies fever, chills, nausea, chest pain, or shortness of breath. He does report urinary retention. Exam Vital Signs (past 8 hours): - 09/22/20 09:44 09/22/20 10:00 09/22/20 11:31 Temperature 98.1 F Pulse Rate 59 L 49 L Respiratory Rate 15 22 Blood Pressure 122/57 L Pulse Oximetry 99 97 96 09/22/20 13:05 Temperature 97.7 F Pulse Rate 58 L Respiratory Rate 17 Blood Pressure 114/51 L Pulse Oximetry 93 Oxygen Delivery Method Room Air Oxygen Flow Rate 0 Narrative Exam Narrative: 75-year-old male postop day 2 status post right total knee ar throplasty. Patient is resting comfortably in bed, is in no acute distress, is alert and oriented x3. Skin is warm and dry, and the skin surrounding the incision site is free of erythema, warmth, induration, or discharge. Phoebe dressing over the incision site is clean and dry. Good sensation appreciated throughout the bilateral lower extremities to light touch. Tenderness to palpation appreciated on the medial aspect of the right thigh and the lateral aspect of the right leg. Ankle dorsiflexion, plantar flexion, eversion, inversion performed bilaterally without difficulty or discomfort. Calves are soft and nontender, negative Homans sign. Palpable pulses appreciated, capillary refill less than 2 seconds. Heart rate is irregularly irregular when palpating the left radial artery. No other signs of DVT appreciated. Const General: cooperative, healthy appearing and comfortable Resp Effort & Inspection: normal respiratory effort and able to speak in complete sentences Skin General: no rashes or lesions noted Objective Labs Result Diagrams: 09/21/20 04:55 [facility] Medical History ADHD Allergic rhinitis Arthritis Asthma Atrial fibrillation Bradyarrhythmia Depression Gout Heart murmur Hepatitis (1957) History of cardioversion History of echocardiogram History of pneumonia Hypertension Hypothyroid Hypothyroidism (acquired) Insomnia Jaundice (1957) Kidney stones LAFB (left anterior fascicular block) Mitral insufficiency Mononucleosis (1957) Obesity (BMI 30-39.9) Obstructive sleep apnea of adult Osteoarthritis Reactive airway disease Recurrent major depression in partial remission Rheumatic fever Sleep apnea Snoring Tachy-lydia syndrome Walking pneumonia Yellow fever (1957) Surgical History History of carpal tunnel release of both wrists (2004) History of colonoscopy History of hydrocelectomy (1996) History of surgery (10/13/19) History of surgery (2004) History of tonsillectomy and adenoidectomy Hx of bilateral cataract extraction (2012) Hx of eye surgery (2011) Hx of hand surgery (2001) Hx of hand surgery Hx of total knee arthroplasty Social History marital status: details: nader [place], lives in [place] household members: spouse lives independently: Yes caregiver/support person: No housing: house education level: college 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 Current pain management regimen is to be continued as it is adequately controlled the patient's pain level at this time. Patient needs to show that he can void independently before he can be discharged. Will continue to monitor the patient overnight. Patient needs to be able to work with physical therapy successfully without episodes of lightheadedness or shortness of breath before he can be discharged. Time Spent With Patient Time with patient: less than 15 minutes
--- NOTE | 2020-09-22 15:51 | PC.NURSE ---
Ortho: First event, has been unable to void and walls was placed. Oxybutin placed on hold. Flomax was started. Walls is to be left in for another night. Dr. Dhillon also ordered to hold eliquis which was done. Second event, PT Meaghan was working with patient - at about 1120 when she was amb patient he reported to her he needed to go back to his room and was feeling sick to his stomach and felt weak. Pt reported to this documentation writer he was feeling nauseated and weak. He felt like his throat was closing. It was reported his RA O2 sat was 80 but the probe had been applied incorrectly and on recheck his RA O2 sat was 99. Heart rate was 38 initially, RR 14, BP 105/57. Prior bp/p had been 133/76 and pulse rate of 58. RT called and they gave pt a neb and an ecg was done. He also received zofran IV. Cont pulse ox was placed. Heart rate went up to the low 40's and then to the mid 40's. Pt has no c/p. O2 sat remained 97% or greater the entire time on RA. Nausea resolved and pt reported he felt better. Was able to eat. Systolic bp remained in the 100's. At 1345 pain meds were given and pt had a heart rate of 53 rr of 16. Systolic bp was 100's. At 1405 SECURITY OPERATIONS CENTER ANALYST was taking patients vital signs and he was noted to have a heart rate in the 120's. He is not having any c/p but he can feel his heart having palpitations. Pt reports hx of a-fib and rapid rates and he takes medication for same at home. He even has a special watch which confirms for him if he has gone into a-fib or not. Heart auscultated and he is irreg and in afib most likely. Message sent to Dr. Dhillon and/or HAILEY down in OR to notify them of what occurred, pt appears to be in a-fib now. What further orders would they like. HAILEY Tracey came to see patient at 1450. And notified pt appears to be in afib now. Requested ecg, ect and he is going to call MD and make her aware. See new orders from HAILEY after speaking with Dr. Dhillon. Dr. Dhillon did come and see pt about 1600. Dr. Dhillon spoke with hospitalist and consulted him.
[2020-09-22] MEDS: dilTIAZem 30 MG TABLET PO (16:10)
--- NOTE | 2020-09-22 17:07 | PT-IP ANOTE ---
checked with nurse Sadia and stated that pt is currently on a-fib and waiting for consult. checked with pt and informed pt regarding holding PT afternoon session. pt and spouse agreed. will f/u tomorrow.
--- NOTE | 2020-09-22 18:47 | P.CONS_ITS ---
History of Present Illness Consult details Date Patient Seen: 09/22/20 Time Patient Seen: 18:47 Chief complaint: *OPB* Reason for consult: afib, presyncope Requesting provider: Fara Dhillon Narrative: This is a 75-year-old male with a past medical history of hypothyroidism, paroxysmal atrial fibrillation, rheumatic heart disease, asthma, hypertension, and recently diagnosed BPH who underwent a right total knee arthroplasty on 09/20/2020. Patient was doing well postoperatively, with continued pain but otherwise without complaints of chest pain, palpitations, or shortness of breath. When working with physical therapy today he began to feel lightheaded and slightly dizzy, they did check his heart rate and it was noted to be in the 30s, although this was not documented in the patient was not on telemetry at that time. When he returned to his bed and rested his symptoms began to improve but he noted that he was back in atrial fibrillation. Patient usually feels when he is back in AFib and in addition to his usual Multaq he has an as-needed prescription for diltiazem. Initial EKG done during bradycardia showed a sinus rhythm, however repeated later in the afternoon showed atrial fibrillation with rapid ventricular response with a rate of 111. Patient was given 30 mg of oral diltiazem, and by the time of my evaluation he had converted back to sinus rhythm. At the time of my interview the patient denied chest pain, shortness of breath, dyspnea on exertion, lower extremity edema, nausea, vomiting, diarrhea. He has not had a bowel movement in 4 days, and currently has a Walls catheter placed for urinary retention. Meds Home Medications and Allergies Home Medications Medication Instructions Recorded Confirmed Type chlorthalidone 25 mg PO QDAY #0 06/04/17 09/20/20 History oxybutynin chloride [Ditropan XL] 10 mg PO QDAY #0 06/04/17 09/20/20 History levothyroxine 125 mcg tablet 125 mcg PO DAILY 90 Days #90 tab 09/17/17 09/20/20 History apixaban 5 mg tablet 5 mg PO BID 08/05/18 09/20/20 History ascorbic acid (vitamin C) 1,000 mg 1 gram PO DAILY tab 06/23/19 09/20/20 History tablet cholecalciferol (vitamin D3) 25 1,000 unit PO DAILY 06/23/19 09/20/20 History mcg (1,000 unit) tablet dronedarone 400 mg tablet 400 mg PO BID tab 06/23/19 09/02/20 History magnesium oxide 400 mg PO DAILY 06/23/19 09/20/20 History diltiazem HCl 30 mg tablet 30 mg PO Q4H PRN tab 12/29/19 09/20/20 History albuterol 90 mcg INHALATION Q4H PRN 08/10/20 09/20/20 History dronedarone [Multaq] 400 mg PO BID 08/10/20 09/20/20 History fluticasone propionate 1 spray INTRANASAL DAILY 08/10/20 09/02/20 History atomoxetine 80 mg capsule 80 mg PO QAM #30 cap 09/02/20 09/20/20 Rx acetaminophen 650 mg PO DAILY 09/20/20 09/20/20 History venlafaxine 75 mg PO BID 09/20/20 09/20/20 History Allergies Allergy/AdvReac Type Severity Reaction Status Date / Time oxycodone AdvReac Severe difficulty Verified 09/02/20 15:23 breathing, rash, hives metoprolol AdvReac Unknown Bradycardia Verified 09/02/20 15:23 Review of Systems Review of Systems Narrative: All other systems reviewed with the patient and are negative unless otherwise stated. Exam Vital Signs (past 8 hours): - 09/22/20 11:31 09/22/20 13:05 09/22/20 15:17 Temperature 97.7 F 98.1 F Pulse Rate 49 L 58 L 110 H Respiratory Rate 22 17 19 Blood Pressure 114/51 L 105/63 Pulse Oximetry 96 93 94 Oxygen Delivery Method Room Air Oxygen Flow Rate 0 Narrative Exam Narrative: GENERAL APPEARANCE: Well developed, well nourished, in no acute distress. SKIN: Inspection of the skin reveals no rashes, ulcerations or petechiae. HEENT: Normocephalic atraumatic, extraocular muscles are intact, oropharynx is clear and mucous membranes are moist, neck is supple without adenopathy NECK: Supple and symmetric. There was no thyroid enlargement, and no tenderness, or masses were felt. CHEST: Normal AP diameter and normal contour without any kyphoscoliosis. LUNGS: Auscultation of the lungs revealed no wheezes, rhonchi, or rales. CARDIOVASCULAR: There was a regular rate and rhythm without any murmurs, gallop s, rubs. Peripheral pulses were 2+ and symmetric. ABDOMEN: Soft and nontender with normal bowel sounds. No ascites was noted. MUSCULOSKELETAL: appropriate knee tenderness, no erythema warmth or induration. EXTREMITIES: No cyanosis, clubbing or edema. NEUROLOGIC: Alert and oriented x 3. Normal affect. Sensation to touch was normal. Objective Labs Result Diagrams: 09/21/20 04:55 Assessment & Plan Assessment & Plan narrative: This is a 75-year-old male with a past medical history of hypothyroidism, paroxysmal atrial fibrillation, rheumatic heart disease, asthma, hypertension, and recently diagnosed BPH who underwent a right total knee arthroplasty on 09/20/2020, medicine consulted for assistance with possible cardiogenic pre-syncopal episode and afib with RVR. 1. Paroxysmal atrial fibrillation with rapid ventricular response, resolved -patient developed atrial fibrillation with rapid ventricular response, EKG show ed a rate of [address] or T-wave abnormalities indicative ischemia. Patient converted back to sinus rhythm about an hour and a half after receiving his dose of 30 mg of oral diltiazem which he has taken for this in the past. -continue telemetry monitoring and home medications as prescribed at this time. -will check basic labs to see if there is any issues with his thyroid medicat ions or electrolyte levels including magnesium and potassium -will check a troponin, although ACS is unlikely given no significant EKG abnormalities and lack of chest pain. -resume home apixaban when safe according to surgery. -patient follows with Dr. Todd, [facility] cardiology, no prior imaging is available for review, however TTE not needed at this time, at this time unless further recurrence he can follow up with him as previously scheduled. 2. Presyncope -patient was reported to have a heart rate in the 30s, however EKG initially performed showed sinus rhythm and this was not further documented. His lowest heart rate was noted to be in the upper 40s which the patient states is his usual baseline. This may be consistent with a vasovagal episode, carotid sinus syncope is also possible but less likely. - when the patient gets up with physical therapy recommend orthostatic blood pressures tomorrow AM and continue telemetry monitoring as bradycardia could require more urgent interventions. 3. Hypothyroidism, chronic' - will check TSH, this has not been checked in some time according to the patient. Continue home dosing for now, no overt symptoms of hypo or hyper thyroidism. 4. BPH, acute on chronic - continue walls catheter, flomax added. Can reattempt trail of void prior to discharge and if he fails will need to follow up with urology as an outpatient. 5. Constipation - patient reports difficulty with bowel movements, likely related to pain medciations. Already on miralax and colace, will add bisacodyl. Code: full as discussed with the patient, he has an advanced directive on file, surrogate decision maker is his spouse. DVT: per primary Will continue to follow this patient pending above evaluation.
[2020-09-22 19:55] LABS: Add Manual Diff / Slide Review NO; Basophils Absolute Auto 100 /uL (0-100); Basophils Percent Auto 0.7 % (0-2); Eosinophils Absolute Auto 100 /uL (0-450); Hematocrit 34.7 % (41-53); Hemoglobin 12.1 g/dL (13.5-17.5); Lymphocytes Absolute Auto 900 /uL (1100-4500); Lymphocytes Percent Auto 9.3 % (25-40); Mean Corpuscular HGB Conc 34.9 % (30-36); Mean Corpuscular Hemoglobin 31.8 PG (26-34); Mean Corpuscular Volume 91.2 fL (80-100); Monocytes Absolute Auto 1400 /uL (0-900); Monocytes Percent Auto 14.3 % (3-14); Neutrophils Absolute Auto 7200 /uL (1500-7000); Neutrophils Percent Auto 74.7 % (50-75); Platelet Count 186 X10^3/uL (150-400); Red Cell Distribution Width 13.2 % (11.6-14.8); White Blood Cell Count 9.6 X10^3/uL (4.5-11.0)
[2020-09-22 20:08] LABS: INR 1.3 (0.9-1.3); Prothrombin Time 15.1 SECONDS (10.1-12.7)
[2020-09-22 20:10] LABS: PTT Partial Thromboplastin Tim 31 SECONDS (26.4-36.2)
[2020-09-22 20:13] LABS: Alanine Aminotransferase 11 IU/L (<50); Albumin 3.6 g/dL (3.5-5.0); Albumin Globulin Ratio 1.4 (1.0-2.8); Alkaline Phosphatase 66 U/L (38-126); Aspartate Aminotransferase 19 IU/L (17-59); Bilirubin Total 0.4 mg/dL (0.2-1.3); Blood Urea Nitrogen 23 mg/dL (9-20); Calcium 8.8 mg/dL (8.4-10.2); Carbon Dioxide 31 mmol/L (22-32); Chloride 101 mmol/L (98-107); Estimated Glomerular Filt Rate 58.3 mL/min (>60); Globulin 2.5 g/dL (1.7-4.1); Glucose 117 mg/dL (80-110); HEMOLYSIS < 15 (0-50); Magnesium 2.1 mg/dL (1.6-2.3); Potassium 3.8 mmol/L (3.4-5.1); Sodium 137 mmol/L (137-145); Total Protein 6.1 g/dL (6.3-8.2)
[2020-09-22 20:24] LABS: Troponin I < 0.012 ng/mL (0.01-0.034)
[2020-09-23] VITALS: BP 111/57; PULSE 56; RESP 18; TEMP 36.6; O2SAT 95
[2020-09-23] MEDS: IBUPROFEN 400 MG TABLET PO ×4 (00:55→12:44)
[2020-09-23 03:55] VITALS: BP 113/67; PULSE 54; RESP 18; TEMP 36.2; O2SAT 96
[2020-09-23] MEDS: LEVOTHYROXINE 125 MCG TABLET PO (06:01)
[2020-09-23 06:30] LABS: BUN Creatinine Ratio 17.4 (6-22); Blood Urea Nitrogen 24 mg/dL (9-20); Calcium 8.8 mg/dL (8.4-10.2); Carbon Dioxide 30 mmol/L (22-32); Chloride 102 mmol/L (98-107); Estimated Glomerular Filt Rate 50.1 mL/min (>60); Glucose 97 mg/dL (80-110); HEMOLYSIS < 15 (0-50); Sodium 136 mmol/L (137-145)
--- NOTE | 2020-09-23 06:59 | PC.NURSE ---
0613 April discontinued, tolerated procedure. Cath. tip intact., declined orthostatic B/P & HR @ 0630. States I'm still sleepy, tired & feels druggy. Will report to day RN.
[2020-09-23 07:03] LABS: TSH w/ Reflex to FT4 3.62 uIU/mL (0.47-4.68)
[2020-09-23 08:00] VITALS: BP 109/67; PULSE 53; RESP 16; TEMP 36.1; O2SAT 98
[2020-09-23] MEDS: FLUTICASONE 120 SPRAY/16 GM SPRAY.SUSP NASAL (09:01)
[2020-09-23] MEDS: ASPIRIN EC 81 MG TABLET PO (09:02)
[2020-09-23] MEDS: DRONEDARONE 400 MG TABLET PO (09:02)
[2020-09-23] MEDS: MAGNESIUM OXIDE 400 MG TABLET PO (09:02)
[2020-09-23] MEDS: VENLAFAXINE ER 75 MG CAP PO (09:02)
[2020-09-23] MEDS: TAMSULOSIN 0.4 MG CAPSULE PO (09:02)
[2020-09-23] MEDS: ASCORBIC ACID 500 MG TABLET 1000 MG PO (09:02)
[2020-09-23] MEDS: CHOLECALCIFEROL (VITAMIN D3) 1,000 UNIT TABLET 1000 UNIT PO (09:02)
[2020-09-23] MEDS: CHLORTHALIDONE 25 MG TABLET PO (09:02)
[2020-09-23] MEDS: SODIUM CHLORIDE 0.9% FLUSH 10 ML IV (09:03)
[2020-09-23] MEDS: HYDROMORPHONE 2 MG TABLET PO ×3 (09:03→16:59)
[2020-09-23] MEDS: ACETAMINOPHEN 325 MG TABLET 650 MG PO ×2 (09:03→13:00)
[2020-09-23] MEDS: DOCUSATE 100 MG CAPSULE PO (09:04)
--- NOTE | 2020-09-23 09:05 | PM.PNPO.1 ---
Subjective Subjective Date Patient Seen: 09/23/20 Time Patient Seen: 09:05 Interval history: Patient states he is doing well overall and is in minimal discomfort at rest. He notes that he is feeling significantly better since his episodes of lightheadedness and shortness of breath yesterday. Patient notes that he has not experienced similar episodes of dizziness or shortness of breath since that time. Pain level has decreased significantly since yesterday. He reports good sensation throughout the bilateral lower extremities. At this time he denies fever, chills, nausea, chest pain, shortness of breath. Patient notes however that he had his urinary catheter removed this morning and has yet to void independently. Exam Vital Signs (past 8 hours): - 09/23/20 03:55 09/23/20 08:00 Temperature 97.2 F L 96.9 F L Pulse Rate 54 L 53 L Respiratory Rate 18 16 Blood Pressure 113/67 109/67 Pulse Oximetry 96 98 Oxygen Delivery Method Room Air Oxygen Flow Rate 0 Narrative Exam Narrative: 75-year-old male postop day 3 status post right total knee arthroplasty. Patient is resting comfortably in bed, is in no acute distress, is alert and oriented x3. Skin is warm and dry, and the skin surrounding the incision site is free of erythema, warmth, induration, or discharge. Phoebe dressing over the incision site is clean, dry, and intact. Good sensation appreciated throughout the bilateral lower extremities to light touch. Hip flexion performed bilaterally without difficulty or discomfort, left greater than right. Ankle dorsiflexion, plantar flexion, eversion, inversion performed bilaterally without difficulty or discomfort. Calves are soft nontender, negative Homans sign. Palpable pulses appreciated, regular rate and rhythm, capillary refill less than 2 seconds. No other signs of DVT appreciated. Const General: cooperative, healthy appearing and comfortable Resp Effort & Inspection: normal respiratory effort and able to speak in complete sentences Skin General: no rashes or lesions noted Objective Labs Result Diagrams: 09/22/20 19:44 09/23/20 05:20 Labs: Laboratory Results - last 24 hr 09/22/20 09/22/20 09/22/20 19:44 19:44 19:44 WBC 9.6 RBC 3.80 L Hgb 12.1 L Hct 34.7 L MCV 91.2 MCH 31.8 MCHC 34.9 RDW 13.2 Plt Count 186 Neut % (Auto) 74.7 Lymph % (Auto) 9.3 L [place] % (Auto) 14.3 H Eos % (Auto) 1.0 L Baso % (Auto) 0.7 Neut # (Auto) 7200 H Lymph # (Auto) 900 L [place] # (Auto) 1400 H Eos # (Auto) 100 Baso # (Auto) 100 PT 15.1 H INR 1.3 APTT 31 Sodium 137 Potassium 3.8 Chloride 101 Carbon Dioxide 31 BUN 23 H Creatinine 1.21 Estimated GFR 58.3 L BUN/Creatinine Ratio 19.0 Glucose 117 H Calcium 8.8 Magnesium 2.1 Total Bilirubin 0.4 AST 19 ALT 11 Alkaline Phosphatase 66 Troponin I < 0.012 Total Protein 6.1 L Albumin 3.6 Globulin 2.5 Albumin/Globulin Ratio 1.4 TSH 09/23/20 09/23/20 05:20 05:20 WBC RBC Hgb Hct MCV MCH MCHC RDW Plt Count Neut % (Auto) Lymph % (Auto) [place] % (Auto) Eos % (Auto) Baso % (Auto) Neut # (Auto) Lymph # (Auto) [place] # (Auto) Eos # (Auto) Baso # (Auto) PT INR APTT Sodium 136 L Potassium 4.0 Chloride 102 Carbon Dioxide 30 BUN 24 H Creatinine 1.38 H Estimated GFR 50.1 L BUN/Creatinine Ratio 17.4 Glucose 97 Calcium 8.8 Magnesium Total Bilirubin AST ALT Alkaline Phosphatase Troponin I Total Protein Albumin Globulin Albumin/Globulin Ratio TSH 3.62 PFSH Medical History ADHD Allergic rhinitis Arthritis Asthma Atrial fibrillation Bradyarrhythmia Depression Gout Heart murmur Hepatitis (1957) History of cardioversion History of echocardiogram History of pneumonia Hypertension Hypothyroid Hypothyroidism (acquired) Insomnia Jaundice (1957) Kidney stones LAFB (left anterior fascicular block) Mitral insufficiency Mononucleosis (1957) Obesity (BMI 30-39.9) Obstructive sleep apnea of adult Osteoarthritis Reactive airway disease Recurrent major depression in partial remission Rheumatic fever Sleep apnea Snoring Tachy-lydia syndrome Walking pneumonia Yellow fever (1957) Surgical History History of carpal tunnel release of both wrists (2004) History of colonoscopy History of hydrocelectomy (1996) History of surgery (10/13/19) History of surgery (2004) History of tonsillectomy and adenoidectomy Hx of bilateral cataract extraction (2012) Hx of eye surgery (2011) Hx of hand surgery (2001) Hx of hand surgery Hx of total knee arthroplasty Social History marital status: details: to Twyla, lives in [place] household members: spouse lives independently: Yes caregiver/support person: No housing: house education level: college 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 Current pain management regimen is to be continued as it is adequately controlled the patient's pain level at this time. Eliquis is to be resumed. Discharge is pending clearance from hospitalist. Time Spent With Patient Time with patient: less than 15 minutes
--- NOTE | 2020-09-23 10:34 | P.PN_ITS ---
Subjective Subjective Date Patient Seen: 09/23/20 Time Patient Seen: 10:34 Interval history: 75-year-old male admitted after knee surgery, medicine was consulted for symptomatic atrial fibrillation. He converted to sinus rhythm after single dose of oral diltiazem. No further episodes of afib, doing well this morning. Denies chest pain, shortness of breath, nausea, vomiting, headache, or dizziness. Exam Vital Signs (past 8 hours): - 09/23/20 03:55 09/23/20 08:00 Temperature 97.2 F L 96.9 F L Pulse Rate 54 L 53 L Respiratory Rate 18 16 Blood Pressure 113/67 109/67 Pulse Oximetry 96 98 Oxygen Delivery Method Room Air Oxygen Flow Rate 0 Narrative Exam Narrative: GENERAL APPEARANCE: Well developed, well nourished, in no acute distress. SKIN: Inspection of the skin reveals no rashes, ulcerations or petechiae. HEENT: Normocephalic atraumatic, extraocular muscles are intact, oropharynx is clear and mucous membranes are moist, neck is supple without adenopathy NECK: Supple and symmetric. There was no thyroid enlargement, and no tenderness, or masses were felt. CHEST: Normal AP diameter and normal contour without any kyphoscoliosis. LUNGS: Auscultation of the lungs revealed no wheezes, rhonchi, or rales. CARDIOVASCULAR: There was a regular rate and rhythm without any murmurs, gallops, rubs. Peripheral pulses were 2+ and symmetric. ABDOMEN: Soft and nontender with normal bowel sounds. No ascites was noted. MUSCULOSKELETAL: appropriate knee tenderness, no erythema warmth or induration. EXTREMITIES: No cyanosis, clubbing or edema. NEUROLOGIC: Alert and oriented x 3. Normal affect. Sensation to touch was normal. Objective Labs Result Diagrams: 09/22/20 19:44 09/23/20 05:20 Labs: Laboratory Results - last 24 hr 09/22/20 09/22/20 09/22/20 19:44 19:44 19:44 WBC 9.6 RBC 3.80 L Hgb 12.1 L Hct 34.7 L MCV 91.2 MCH 31.8 MCHC 34.9 RDW 13.2 Plt Count 186 Neut % (Auto) 74.7 Lymph % (Auto) 9.3 L [place] % (Auto) 14.3 H Eos % (Auto) 1.0 L Baso % (Auto) 0.7 Neut # (Auto) 7200 H Lymph # (Auto) 900 L [place] # (Auto) 1400 H Eos # (Auto) 100 Baso # (Auto) 100 PT 15.1 H INR 1.3 APTT 31 Sodium 137 Potassium 3.8 Chloride 101 Carbon Dioxide 31 BUN 23 H Creatinine 1.21 Estimated GFR 58.3 L BUN/Creatinine Ratio 19.0 Glucose 117 H Calcium 8.8 Magnesium 2.1 Total Bilirubin 0.4 AST 19 ALT 11 Alkaline Phosphatase 66 Troponin I < 0.012 Total Protein 6.1 L Albumin 3.6 Globulin 2.5 Albumin/Globulin Ratio 1.4 TSH 09/23/20 09/23/20 05:20 05:20 WBC RBC Hgb Hct MCV MCH MCHC RDW Plt Count Neut % (Auto) Lymph % (Auto) [place] % (Auto) Eos % (Auto) Baso % (Auto) Neut # (Auto) Lymph # (Auto) [place] # (Auto) Eos # (Auto) Baso # (Auto) PT INR APTT Sodium 136 L Potassium 4.0 Chloride 102 Carbon Dioxide 30 BUN 24 H Creatinine 1.38 H Estimated GFR 50.1 L BUN/Creatinine Ratio 17.4 Glucose 97 Calcium 8.8 Magnesium Total Bilirubin AST ALT Alkaline Phosphatase Troponin I Total Protein Albumin Globulin Albumin/Globulin Ratio TSH 3.62 PFSH Medical History ADHD Allergic rhinitis Arthritis Asthma Atrial fibrillation Bradyarrhythmia Depression Gout Heart murmur Hepatitis (1957) History of cardioversion History of echocardiogram History of pneumonia Hypertension Hypothyroid Hypothyroidism (acquired) Insomnia Jaundice (1957) Kidney stones LAFB (left anterior fascicular block) Mitral insufficiency Mononucleosis (1957) Obesity (BMI 30-39.9) Obstructive sleep apnea of adult Osteoarthritis Reactive airway disease Recurrent major depression in partial remission Rheumatic fever Sleep apnea Snoring Tachy-lydia syndrome Walking pneumonia Yellow fever (1957) Surgical History History of carpal tunnel release of both wrists (2004) History of colonoscopy History of hydrocelectomy (1996) History of surgery (10/13/19) History of surgery (2004) History of tonsillectomy and adenoidectomy Hx of bilateral cataract extraction (2012) Hx of eye surgery (2011) Hx of hand surgery (2001) Hx of hand surgery Hx of total knee arthroplasty Social History marital status: details: nader Wakefield, lives in [place] household members: spouse lives independently: Yes caregiver/support person: No housing: house education level: college 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 1. Paroxysmal atrial fibrillation with rapid ventricular response, resolved -patient developed atrial fibrillation with rapid ventricular response, EKG showed a rate of [address] or T-wave abnormalities indicative ischemia. Patient converted back to sinus rhythm about an hour and a half after receiving his dose of 30 mg of oral diltiazem which he has taken for this in the past. -no further episodes were noted on telemetry -no significant electrolyte abnormalities on basic laboratory findings. -troponin was negative -resume home apixaban when safe according to surgery. -patient follows with Dr. Todd, [facility] cardiology, no prior imaging is available for review, however TTE not needed at this time, at this time unless further recurrence he can follow up with him as previously scheduled. 2. Presyncope -patient was reported to have a heart rate in the 30s, however EKG initially performed showed sinus rhythm and this was not further documented. His lowest heart rate was noted to be in the upper 40s which the patient states is his usual baseline. This may be consistent with a vasovagal episode, carotid sinus syncope is also possible but less likely. -patient had no further episodes of bradycardia and had no further presyncopal episodes. If this occurs again would recommend Holter monitor as an outpatient. 3. Hypothyroidism, chronic' -TSH is within normal limits at 3.62. 4. BPH, acute on chronic - continue walls catheter, flomax added. Can reattempt trail of void prior to discharge and if he fails will need to follow up with urology as an outpatient. 5. Constipation - patient reports difficulty with bowel movements, likely related to pain medciations. Already on miralax and colace, added bisacodyl. Code: full as discussed with the patient, he has an advanced directive on file, surrogate decision maker is his spouse. DVT: per primary Patient appears medically stable at this time, medicine will sign off. Thank you for allowing us to participate in the care of this patient.
--- NOTE | 2020-09-23 11:40 | PT.IPTN ---
Current Diagnoses Unilateral primary osteoarthritis, right knee (09/20/20) Presence of left artificial knee joint (09/20/20) Surgery Performed Operation Date: 09/20/20 12:45 Actual Procedures p Total Knee Arthroplasty(Right) - Fara Dhillon MD Physical Therapy Treatment Note M2 PT-IP Current Condition Start: 09/21/20 12:18 Freq: NEEDED Status: Active Protocol: Document 09/21/20 09:10 AB (Rec: 09/21/20 12:30 AB [email or web address]) Physical Therapy Current Condition Current Condition Evaluation Date 09/21/20 Treatment Diagnosis s/p R TKA; difficulty in walking Onset Date 09/20/20 Weight Bearing Status Weight Bearing Status Weight Bear as Tolerated Allowed Weight Bearing Amount (enter % RLE WBAT or #) (%) M3 PT-IP Subjective Start: 09/21/20 12:18 Freq: NEEDED Status: Active Protocol: Document 09/23/20 11:40 AB (Rec: 09/23/20 13:16 AB [email or web address]) Subjective Physical Therapy Visit Type Type Treatment Note Visit Start Time 11:40 Visit Stop Time 12:15 Total Visit Minutes 35 Number of DISPUTE RESOLUTION SPECIALIST Visits 0 Physical Therapy Visit Comments Patient Comments stated that he is feeling getter Therapy Pain Assessment Pain When Pain Assessed At Rest Pain Present Pain Present Pain Reported Location Left Knee Intensity 3 Scale Used Numeric (0 - 10) Pain Management Techniques Distraction,Modification of Treatment,Re-positioning, Timing of Activity with Medications M4 PT-IP Mobility and Gait Start: 09/21/20 12:18 Freq: NEEDED Status: Active Protocol: Document 09/23/20 11:40 AB (Rec: 09/23/20 13:16 AB [id number]) PT-Bed Mobility Assessment Supine to Sit Supine to Sit Standby Assistance PT-Transfer Assessment Sit to and From Stand Sit to and from Stand Contact Guard Assistance,1 Person Assistance,Use of Upper Extremities Equipment Transfer Assistive Device Gait Belt,Front Wheeled Walker Orthotic/Prosthetic Devices or Brace: No Transfers Transfer Destination Chair Transfer Technique ambulated using FWW Transfer Ability Level of Assist Contact Guard Assistance,1 Person Assistance,Use of Upper Extremities Comments Mobility Comments pt completed supine to sit SBA . BP in sittin/77. pt with c/o slight dizziness even during supine. Spouse was able to put safety belt on pt and assisted pt with sit to stand. completed sit to stand CGA and was able to stand CGA using FWW for support. BP checked after ~ 1-2 min of standin/73. pt ambulated in the hallway with sposue assisting ~ 100 ft. pt rested. reviewed stair climbing technique. pt completed up/ down platform step using SPC and spouse assisting. initially requiring cues from PT but able to complete without cues after a few reps. assisted pt back to room. pt agreed to sit up on chair. ambulated from w/c to chair. CGA using FWW with spouse assisting. positioned pt on chair. call light and table placed within reach. Gait Assessment Gait Gait Assistance Required: Contact Guard Assist Distance (Feet) 100 Able to Maintain Weight Bearing Status Yes During Gait Assistive Devices Assistive Device Gait Belt,Front Wheeled Walker Orthotic/Prosthetic Devices or Brace: No Gait Deviations General Gait Pattern Antalgic,Decreased Stride Length,Decreased Feet Clearance Factors Limiting Gait Function Factors Limiting Gait Function Decreased Activity Tolerance, Decreased Strength,Pain,Poor Balance Stair Climbing Assessment Evaluation Level of Assist On Stairs Minimal Assistance,Moderate Assistance,1 Person Assistance Devices Stair Climbing Assistive Devices Straight Cane Technique/Endurance Stair Climbing Direction Ascend and Descend Stair Climbing Technique Step to Step Number of Steps Climbed 1 Stair Climbing Set # Repetitions (reps) 6 M5 PT-IP Objective Assessments Start: 09/21/20 12:18 Freq: NEEDED Status: Active Protocol: Document 09/21/20 09:10 AB (Rec: 09/21/20 12:30 AB [id number]) Orientation Orientation/Cognition Level of Alertness Alert Orientation Name Language Function Ability No Deficits Noted Safety Awareness Decreased Safety Awareness Memory Description Short Term Impaired Gross Range of Motion Lower Extremity ROM Assessment Right Impaired Impairments R knee flexion: ~ 70 deg R knee extion : ~ 15 deg less to 0 Strength Lower Extremity Strength Assessment Right Impaired Knee 3+/5 Sensation Assessment Sensation Gross Sensation WNL Muscle Tone Muscle Tone WNL Yes M6 PT-IP Treatment Start: 09/21/20 12:18 Freq: NEEDED Status: Active Protocol: Document 09/23/20 11:40 AB (Rec: 09/23/20 13:16 AB [id number]) Physical Therapy Treatment Exercises Exercises Heel Slides Education Education Provided Weight Bearing Status,Safety M7 PT-IP Assessment and Plan Start: 09/21/20 12:18 Freq: NEEDED Status: Active Protocol: Document 09/23/20 11:40 AB (Rec: 09/23/20 13:16 AB [id number]) PT Summary Assessment and Plan Potential Rehabilitation Potential Good Summary Impairments Pain Progress Towards Goals Progressing Toward Goals Assessment Summary caregiver training conducted and spouse was able to assist pt safely. pt stated that he feels better and wants to go home. pt plans to have HHPT and go to outpt PT afterwards. pt may go home when medically stable. Goals Bed Mobility Goal Standby Assistance Transfer Goal Standby Assistance,Front Wheeled Walker Gait Goal Standby Assistance,Front Wheel Walker Gait Distance 150 Other Goals up/down 2 steps using SPC/ ORDER TRACER mod A up/down step stool using FWW SBA Days to Meet Goals 5 Frequency of Treatment Frequency Of Treatment Twice a Day Treatment Plan Physical Therapy Treatment Plan Bed Mobility Training,Transfer Training,Gait Training, Therapeutic Exercise,Balance Retraining,Post Op Education, Discharge Planning,Hot or Cold Pack,Neuromuscular Re-ed, Coordination Retraining,Manual Therapy Precautions Other Precautions RLE WBAT Recommendations To Nursing Amount of Assist Needed 1 Person Assist Discharge Recommendations PT Discharge Recommendations Home with 24/ Assist Available,Home Health Transportation Needs at Discharge Private Vehicle
[2020-09-23] MEDS: APIXABAN 5 MG TABLET PO (12:45)
--- NOTE | 2020-09-23 15:26 | PM.DS.1 ---
History of Present Illness History of Present Illness Date Patient Seen: 09/23/20 Time Patient Seen: 15:26 Chief complaint: *OPB* Narrative: Refer to previous HPI. Discharge Providers Provider Date of admission: 09/20/20 10:34 Discharge Date: 09/23/20 Primary care physician: Maikol Mcmullen DO Consults: 09/20/20 11:16 Consult to Anesthesiology Routine Comment: Consulting Provider: Anesthesiologist Reason for consultation: Regional block for post operative pain control 09/20/20 11:56 Consult to Respiratory Therapy Evaluate & Treat Comment: Physician Instructions: Evaluate and treat 09/20/20 17:49 Consult to Discharge Planning Routine Comment: Consult to Physical Therapy Evaluate & Treat Comment: Physician Instructions: postop TKA protocol Consult to Respiratory Therapy Evaluate & Treat Comment: Physician Instructions: Evaluate and treat 09/20/20 18:26 Consult to Anesthesiology Routine Comment: Consulting Provider: Anesthesiologist Reason for consultation: Regional block for post operative pain control 09/22/20 15:35 Consult to Internal Medicine Routine Comment: Consulting Provider: Uday Espinosa Reason for consultation: Pt in afib Has provider been notified: No Discharge provider: Alexy Taylor PA-C Summary Hospital Course Discharge Diagnosis: Right knee osteoarthritis Status post right total knee arthroplasty Hospital Course: Patient was admitted to the hospital following the above-listed procedure for the above-listed diagnosis. Following the procedure the patient has been convalescing appropriately in his pain is managed with his current pain management regimen. Aspirin 81 mg twice daily has been administered for DVT prophylaxis with the assistance of sequential compression devices. Patient is successfully worked on ambulation with the assistance of a front wheel walker with physical therapy. Brief episode yesterday of atrial fibrillation causing the patient to become dizzy and lightheaded. No further episodes have been reported and hospitalist was consulted. Patient was cleared by hospitalist prior to discharge. Dressing has remained intact over the incision site following surgery. Status at Discharge Cognitive/behavioral status at discharge: oriented Functional status at discharge: uses cane/walker Overall status at discharge: patient is progressing back to baseline Exam Vital Signs (past 8 hours): - 09/23/20 08:00 Temperature 96.9 F L Pulse Rate 53 L Respiratory Rate 16 Blood Pressure 109/67 Pulse Oximetry 98 Oxygen Delivery Method Room Air Oxygen Flow Rate 0 Narrative Exam Narrative: 75-year-old male postop day 3 status post right total knee arthroplasty. Patient is resting comfortably in bed, is in no acute distress, is alert and oriented x3. Skin is warm and dry, and the skin surrounding the incision site is free of erythema, warmth, induration, or discharge. Phoebe dressing over the incision site is clean, dry, and intact. Good sensation appreciated throughout the bilateral lower extremities to light touch. Hip flexion performed bilaterally without difficulty or discomfort, left greater than right. Ankle dorsiflexion, plantar flexion, eversion, inversion performed bilaterally without difficulty or discomfort. Calves are soft nontender, negative Homans sign. Palpable pulses appreciated, regular rate and rhythm, capillary refill less than 2 seconds. No other signs of DVT appreciated. Const General: cooperative, healthy appearing and comfortable Resp Effort & Inspection: normal respiratory effort and able to speak in complete sentences Skin General: no rashes or lesions noted Objective Labs Result Diagrams: 09/22/20 19:44 09/23/20 05:20 Labs: Laboratory Results - last 24 hr 09/22/20 09/22/20 09/22/20 19:44 19:44 19:44 WBC 9.6 RBC 3.80 L Hgb 12.1 L Hct 34.7 L MCV 91.2 MCH 31.8 MCHC 34.9 RDW 13.2 Plt Count 186 Neut % (Auto) 74.7 Lymph % (Auto) 9.3 L [place] % (Auto) 14.3 H Eos % (Auto) 1.0 L Baso % (Auto) 0.7 Neut # (Auto) 7200 H Lymph # (Auto) 900 L [place] # (Auto) 1400 H Eos # (Auto) 100 Baso # (Auto) 100 PT 15.1 H INR 1.3 APTT 31 Sodium 137 Potassium 3.8 Chloride 101 Carbon Dioxide 31 BUN 23 H Creatinine 1.21 Estimated GFR 58.3 L BUN/Creatinine Ratio 19.0 Glucose 117 H Calcium 8.8 Magnesium 2.1 Total Bilirubin 0.4 AST 19 ALT 11 Alkaline Phosphatase 66 Troponin I < 0.012 Total Protein 6.1 L Albumin 3.6 Globulin 2.5 Albumin/Globulin Ratio 1.4 TSH 09/23/20 09/23/20 05:20 05:20 WBC RBC Hgb Hct MCV MCH MCHC RDW Plt Count Neut % (Auto) Lymph % (Auto) [place] % (Auto) Eos % (Auto) Baso % (Auto) Neut # (Auto) Lymph # (Auto) [place] # (Auto) Eos # (Auto) Baso # (Auto) PT INR APTT Sodium 136 L Potassium 4.0 Chloride 102 Carbon Dioxide 30 BUN 24 H Creatinine 1.38 H Estimated GFR 50.1 L BUN/Creatinine Ratio 17.4 Glucose 97 Calcium 8.8 Magnesium Total Bilirubin AST ALT Alkaline Phosphatase Troponin I Total Protein Albumin Globulin Albumin/Globulin Ratio TSH 3.62 PFSH Medical History ADHD Allergic rhinitis Arthritis Asthma Atrial fibrillation Bradyarrhythmia Depression Gout Heart murmur Hepatitis (1957) History of cardioversion History of echocardiogram History of pneumonia Hypertension Hypothyroid Hypothyroidism (acquired) Insomnia Jaundice (1957) Kidney stones LAFB (left anterior fascicular block) Mitral insufficiency Mononucleosis (1957) Obesity (BMI 30-39.9) Obstructive sleep apnea of adult Osteoarthritis Reactive airway disease Recurrent major depression in partial remission Rheumatic fever Sleep apnea Snoring Tachy-lydia syndrome Walking pneumonia Yellow fever (1957) Surgical History History of carpal tunnel release of both wrists (2004) History of colonoscopy History of hydrocelectomy (1996) History of surgery (10/13/19) History of surgery (2004) History of tonsillectomy and adenoidectomy Hx of bilateral cataract extraction (2012) Hx of eye surgery (2011) Hx of hand surgery (2001) Hx of hand surgery Hx of total knee arthroplasty Social History marital status: details: nader [place], lives in [place] household members: spouse lives independently: Yes caregiver/support person: No housing: house education level: college 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 Plan of Treatment: Patient is to continue physical therapy in the outpatient setting following discharge from the hospital. First postoperative visit in clinic is scheduled for 2 weeks following discharge from the hospital. Dressing over the incision site is to remain intact for 1 week. Contact clinic if the dressing is to become damaged or soiled. Current pain management regimen is to be continued as it is adequately controlled the patient's pain level. Aspirin 81 mg twice daily is to be continued for 6 weeks for DVT prophylaxis. Weightbearing as tolerated with the assistance of a front wheeled walker. Contact clinic with any concerns or questions. Any signs of increased redness, swelling, warmth, pain, or discharge from around the incision site should be reported to the clinic Discharge Plan Discharge Plan Patient Disposition: Home Provider Discharge Comment: Patient cleared for discharge pending hospitalist clearance. Discharge orders & Medications Prescriptions: New acetaminophen 325 mg Tablet 650 mg PO TID Qty: 90 RF: 0 aspirin 81 mg Tablet,Delayed Release (Dr/Ec) 81 mg PO BID Qty: 90 RF: 0 hydromorphone 2 mg Tablet 2 mg PO Q3H PRN (Reason: Pain, Severe (7-10)) Qty: 42 RF: 0 ibuprofen 400 mg Tablet 400 mg PO Q4HR Qty: 90 RF: 0 Continued levothyroxine 125 mcg tablet 125 mcg PO DAILY 90 Days Qty: 90 RF: 0 magnesium oxide 200 mg magnesium tablet 400 mg PO DAILY RF: 0 ascorbic acid (vitamin C) 1,000 mg tablet 1 gram PO DAILY RF: 0 cholecalciferol (vitamin D3) [Vitamin D3] 25 mcg (1,000 unit) tablet 1,000 unit PO DAILY RF: 0 diltiazem HCl 30 mg tablet 30 mg PO Q4H PRN (Reason: a-fib) RF: 0 atomoxetine 80 mg capsule 80 mg PO QAM Qty: 30 RF: 2 oxybutynin chloride [Ditropan XL] 10 MG tablet extended release 24hr 10 mg PO QDAY Qty: 0 RF: 0 chlorthalidone 25 MG tablet 25 mg PO QDAY Qty: 0 RF: 0 albuterol 90 mcg/actuation Aerosol 90 mcg INHALATION Q4H PRN (Reason: Wheezing) RF: 0 fluticasone propionate 50 mcg/actuation spray,suspension 1 spray INTRANASAL DAILY RF: 0 Multaq 400 mg tablet 400 mg PO BID RF: 0 acetaminophen 325 mg tablet 650 mg PO DAILY RF: 0 venlafaxine 150 mg capsule,extended release 24hr 75 mg PO BID RF: 0 Eliquis 5 mg tablet 5 mg PO BID RF: 0 Multaq 400 mg tablet 400 mg PO BID RF: 0 Follow up/Referrals: Scheidt,Judye, DO [Primary Care Provider] - Diet/Activity/Treatments Diet: Diet as Tolerated Activity: Weight-bearing as tolerated with the assistance of a front wheeled walker. Skin/Wound/Dressing Care Report to your healthcare provider any signs of infection, such as:: chills, fever, night sweats, increased pain, unusual drainage and unusual redness Dressing: Dressing over the incision site is to remain intact for 1 week. Contact clinic if the dressing becomes damaged or soiled. Other wound treatment: Avoid placing topical ointments over the incision site. Avoid soaking the incision site. Visit Report/Discharge Packet Instructions: Bradycardia, DI for Heart Failure, DI for Knee Replacement, DI for Constipation, How to Prevent Falls, DI for Urinary Retention in Men, DI for Prescription Opioid Use Stand Alone Forms: Surgery Discharge Discharge Data Primary Care Provider: Maikol Mcmullen
[2020-09-23 15:28] VITALS: BP 121/65; PULSE 62; RESP 18; TEMP 36.8; O2SAT 93
--- NOTE | 2020-09-23 15:53 | CM.DPC ---
DCP: continued: case received and d/c order is now noted. EMR reviewed and followed up on the d/c plan (home with spouse Twyla and Patti GUO as set up by the orthopedic team prior to pt's surgery. DC summary is faxed now to Patti GUO as per plan outlined in colleagues dcp note of yesterday. Checked in with pt and his Twyla. Both say they have not yet seen HAILEY Tracey this afternoon. Twyla says we were expecting that he might d/c today but still have questions for HAILEY Tracey. RHIANNA Mccullough and RHIANNA Mckeon/here for bryon shift both say they need to speak with HAILEY Tracey re the orders also. IMM #2 presented to pt and handed to his Twyla. P: expect home later today when above issues sorted out.
[2020-09-23] MEDS: hydrOXYzine pamoate 25 MG CAPSULE PO (16:59)
== END 2020-09-23 17:46 | disposition home health service (06) | DRG 983 ==
LOC: OR 10:35 → AC 10:36
PROVIDERS: Internal Medicine; Admitting Provider Orthopaedic Surgery; Family Provider Family Medicine; PCP Family Medicine; Referring Provider Orthopaedic Surgery; Visit Provider Orthopaedic Surgery
PROC: 0SRC0JZ Replacement of Right Knee Joint with Synthetic Substitute, Open Approach (ICD-10-PCS; CPT 27447; principal; 2020-09-20 12:45)
DX: M17.11 Unilateral primary osteoarthritis, right knee (principal); I48.0 Paroxysmal atrial fibrillation; R55 Syncope and collapse; E03.9 Hypothyroidism, unspecified; Z79.01 Long term (current) use of anticoagulants; N40.1 Benign prostatic hyperplasia with lower urinary tract symptoms; R33.8 Other retention of urine; K59.00 Constipation, unspecified; Z20.822 Contact with and (suspected) exposure to COVID-19
CPT/HCPCS: 27447; 36415; 73560; 80048; 80053; 83735; 84443; 84484; 85014; 85018; 85025; 85610; 85730; 93005; 94640; 94762; 97162; 97530; C1776; G0378; C9290; J0690; J1100; J2250; J2274; J2405; J2704; J3010; J7613

== ENCOUNTER → 2024-06-29 16:06 | Outpatient (CLI) | payer MEDICARE, SELFPAY ==
[2020-09-20 17:59] VITALS: BMI 37.2
--- NOTE | 2024-06-29 16:07 | DI.ECHO.S_ITS ---
[facility]---------+ [facility] : : [address] : : [place] : : [id number] : : Phone: [phone] Echocardiogram Report + + :Name: MAUREEN STEELE Study Date: 06/29/2024 Height: 69 in : :[facility] ReadingLocation: Weight: 240 lb : : Gender: Male BSA: 2.2 m2 : :: 1945 Age: 78 yrs BP: 159/75 mmHg: :Reason For Study: ATRIAL FIBRILLATION : :Ordering Physician: TAN, : :JOSE EDUARDO Performed By: Larry Peterson : :Referring: JOSE EDUARDO MADDOX : + + Interpretation Summary 1. The left ventricular contractility is normal. Estimate ejection fraction is Marc 55% with no segmental wall motion abnormalities. Mild concentric LVH. Grade 1 diastolic dysfunction. 2. The right ventricular contractility is normal. 3. Biatrial enlargement noted. The right and left ventricular cavities are of normal size. 4. Mild mitral regurgitation. 5. Mild aortic insufficiency. 6. Mild tricuspid regurgitation with estimated pulmonary systolic artery pressures of 40 mmHg. 7. Mild pulmonic insufficiency. 8. No obvious intracardiac shunts. 9. No obvious intracardiac masses nor thrombi. 10. No hemodynamically significant pericardial effusion. 11. Ascending thoracic aorta without obvious dissection. 12. Normal right-sided filling pressures. Conclusion: Normal biventricular systolic function with mild valvular insufficiencies. Procedure: A two-dimensional transthoracic echocardiogram with color flow and Doppler was performed. The study quality was technically good. There is no prior echocardiogram noted for this patient. The patient was in normal sinus rhythm during the exam. Left Ventricle: The left ventricle is normal in size. Left ventricular wall thickness is mildly increased. There is no ventricular septal defect visualized. The ejection fraction is estimated to be 55-60%. There are no focal wall motion abnormalities. Diastolic parameters suggest a relaxation abnormality of the left ventricle, consistent with probable normal filling pressures. Right Ventricle: The right ventricle is normal in size and function. Atria: The left atrium is moderately dilated. The right atrium is mildly dilated. There is no Doppler evidence for an atrial septal defect. Mitral Valve: The mitral valve leaflets appear normal. There is no evidence of stenosis, fluttering, or prolapse. There is mild mitral regurgitation. Aortic Valve: The aortic valve is trileaflet. The aortic valve is mildly calcified. The aortic valve opens well. There is mild aortic regurgitation. Tricuspid Valve: The tricuspid valve leaflets are thin and pliable. There is mild tricuspid regurgitation. The right ventricular systolic pressure is estimated to be at least 40 mmHg based on an estimated right atrial pressure of 8 mm Hg. Pulmonic Valve: The pulmonic valve leaflets are thin and pliable; valve motion is normal. There is mild pulmonic regurgitation. Great Vessels: The aortic root is normal size. The ascending aorta is mild- moderately enlarged. The pulmonary artery is normal size. The IVC is dilated (diameter is greater than 2.1 cm) yet it collapses greater than 50% with a sniff. This suggests a right atrial pressure of 8 mm Hg. Pericardium/ Pleura There is no pericardial effusion. There is no pleural effusion. MMode/2D Measurements & Calculations LVIDd: 5.2 cm LVOT diam: 2.2 cm LVIDs: 3.2 cm Ao root diam: 3.7 cm FS: 38.7 % asc Aorta Diam: 4.5 cm EPSS: 0.94 cm Ao Arch Diam (Prox Trans): 2.1 cm IVSd: 1.3 cm LVPWd: 1.3 cm LV toney. diameter/BSA (cm/m^2): 2.3 LV sys. diameter/BSA (cm/m^2): 1.4 LA A2 area: 26.1 cm2 RA long axis: 5.8 cm LA A4 area: 30.3 cm2 RA area: 19.6 cm2 LA length (vol): 6.8 cm RA vol: 56.3 ml LA vol: 99.2 ml RA : 25.2 ml/m2 LA vol index: 44.4 ml/m2 IVC diam: 2.3 cm RVD1 (basal): 3.7 cm RVD2 (mid): 2.9 cm TAPSE: 2.8 cm Doppler Measurements & Calculations Ao V2 max: 163.1 cm/sec LVOT Max Min: 118.6 cm/sec Ao V2 mean: 115.0 cm/sec LV V1 max P.6 mmHg Ao max P.6 mmHg LV V1 VTI: 26.5 cm Ao mean P.0 mmHg SILVIA(I,D): 2.7 cm2 Ao V2 VTI: 37.2 cm SILVIA(V,D): 2.8 cm2 sev ratio: 0.71 SILVIA indexed to BSA (cm^2/m^2): 1.2 MV E max min: 71.2 cm/sec TR max min: 281.8 cm/sec MV A max min: 68.9 cm/sec TR max P.8 mmHg MV E/A: 1.0 PA V2 max: 119.1 cm/sec Med Peak E' Min: 4.5 cm/sec PA V2 mean: 81.5 cm/sec E/E' med: 15.9 PA mean P.1 mmHg Lat Peak E' Min: 4.8 cm/sec PA pr(Accel): 24.2 mmHg E/E' lat: 14.9 E/e' average: 15.4 MV dec time: 0.21 sec MR ERO: 0.18 cm2 MR PISA: 2.6 cm2 SV(LVOT): 102.0 ml MR flow rate: 97.1 cm3/sec MR PISA radius: 0.65 cm Reading Physician:BHAVNA
== END ==
PROVIDERS: Family Provider Family Medicine; PCP Internal Medicine; Referring Provider Internal Medicine; Visit Provider Internal Medicine
DX: I48.0 Paroxysmal atrial fibrillation (principal); I08.3 Combined rheumatic disorders of mitral, aortic and tricuspid valves; I77.89 Other specified disorders of arteries and arterioles
CPT/HCPCS: 93306